=== PATIENT | female | born 1985 | race Two or more races ===

== ENCOUNTER 2016-07-02 09:17 | Inpatient (IN) | payer OTHER ==
[2016-07-02] MEDS ORDERED: SODIUM CHLORIDE 0.9% 1000 ML INFUS.BAG IV ONE ×2 (09:40→14:30)
--- NOTE | 2016-07-02 09:40 | PDOC ---
History of Present Illness <Aakash Tolentino - Last Filed: 07/02/16 19:08> - General History Source: Patient Exam Limitations: No Limitations - History of Present Illness Initial Comments: 07/02/16 09:42 The patient is a 31-year-old woman with a significant past surgical medical history gastric bypass (2010) of who presents to the emergency department via walk-in for evaluation of persistent abdominal pain for the past 4 days. As per patient, she reports diffuse abdominal pain, worse at the right upper/lower lateral abdomen with a 10/10 in severity. Patient recalls lifting a heavy object on . She states that her pain is exacerbated with lateral movements. She does not provide any alleviating factors. Patient also reports also developing nausea, vomiting(non-blood/non-bilious), loose watery stools and lightheadedness over the past 4 days. She reports visiting her father, who resides at a [facility]. She states that her father had gotten over a stomach bug and expresses concern to if she has contracted the same stomach bug. She denies fever, chills, diaphoresis, generalized weakness. She denies chest pain, shortness of breath, cough She denies dysuria, hematuria, urinary frequency and urgency, flank pain, vaginal discharge/vaginal bleeding Allergies: No Known Drug Allergies. Past Surgical History: Caesarian Section x2. Gastric Bypass (2010) Social History: She denies tobacco, ETOH and recreational drug use. <Janel Rodriguez - Last Filed: 07/02/16 19:09> - General Chief Complaint: Pain Stated Complaint: DEHYDRATED, ABD PAIN, DIZZINESS Past History - Past Medical History Other medical history: DENIES - Surgical History Gastric Stapling: No (BYPASS 2010) - Psycho/Social/Smoking Cessation Hx Anxiety: No Suicidal Ideation: No Smoking History: Never smoked Hx Alcohol Use: No Drug/Substance Use Hx: No Substance Use Type: None <Aakash Tolentino - Last Filed: 07/02/16 19:08> <Janel Rodriguez - Last Filed: 07/02/16 19:09> - Past Medical History Allergies/Adverse Reactions: Allergies Allergy/AdvReac Type Severity Reaction Status Date / Time Iv Dye Allergy Intermediate Rash Uncoded 07/02/16 18:46 Home Medications: Ambulatory Orders NK [No Known Home Medication] 07/02/16 Review of Systems - Review of Systems Able to Perform ROS?: Yes Comments:: 07/02/16 09:42 GENERAL/CONSTITUTIONAL: No fever or chills. No weakness. HEAD, EYES, EARS, NOSE AND THROAT: No change in vision. No ear pain or discharge. No sore throat. CARDIOVASCULAR: No chest pain or shortness of breath. RESPIRATORY: No cough, wheezing, or hemoptysis. GASTROINTESTINAL: Yes: +Abdominal pain. +Nausea. +Vomiting. +Diarrhea. No constipation. GENITOURINARY: No dysuria, frequency, or change in urination. MUSCULOSKELETAL: No joint or muscle swelling or pain. No neck or back pain. SKIN: No rash NEUROLOGIC: Yes: +Lightheadedness. No headache, vertigo, loss of consciousness, or change in strength/sensation. ENDOCRINE: Yes: +Weight loss secondary to gastric bypass. No increased thirst. No abnormal weight change. HEMATOLOGIC/LYMPHATIC: No anemia, easy bleeding, or history of blood clots. ALLERGIC/IMMUNOLOGIC: No hives or skin allergy. <Janel Rodriguez - Last Filed: 07/02/16 19:09> *Physical Exam - Vital Signs Last Vital Signs Temp Pulse Resp BP Pulse Ox 98.6 F 123 H 20 115/77 100 07/02/16 09:19 07/02/16 09:19 07/02/16 09:19 07/02/16 09:19 07/02/16 09:19 <Aakash Tolentino - Last Filed: 07/02/16 19:08> - Vital Signs Last Vital Signs Temp Pulse Resp BP Pulse Ox 98.6 F 123 H 20 115/77 100 07/02/16 09:19 07/02/16 09:19 07/02/16 09:19 07/02/16 09:19 07/02/16 09:19 - Physical Exam Comments: 07/02/16 09:42 GENERAL: Awake, alert, and fully oriented, appears dehydrated. HEAD: No signs of trauma EYES: PERRLA, EOMI, sclera anicteric, conjunctiva clear ENT: Auricles normal inspection, hearing grossly normal, nares patent, oropharynx clear without exudates. Dry mucosa NECK: Normal ROM, supple, no lymphadenopathy, JVD, or masses LUNGS: Breath sounds equal, clear to auscultation bilaterally. No wheezes, and no crackles HEART: Regular rate and rhythm, normal S1 and S2, no murmurs, rubs or gallops ABDOMEN: Soft, tenderness over McBurney's point. Normoactive bowel sounds. No guarding, no rebound. No masses EXTREMITIES: Normal range of motion, no edema. No clubbing or cyanosis. No cords, erythema, or tenderness NEUROLOGICAL: Cranial nerves II through XII grossly intact. Normal speech. <Janel Rodriguez - Last Filed: 07/02/16 19:09> ED Treatment Course - LABORATORY CBC & Chemistry Diagram: 07/02/16 09:35 07/02/16 09:40 <Aakash Tolentino - Last Filed: 07/02/16 19:08> - LABORATORY CBC & Chemistry Diagram: 07/02/16 09:35 07/02/16 09:40 - RADIOLOGY Radiograph Interpretation: 07/02/16 14:16 EXAM: RAD/CHEST PA & LAT Reviewed by Dr. Aakash Tolentino Interpreted by Dr. Roly Gaming IMPRESSION: No acute infiltrates. Questionable atelectatic change posterior base. EXAM: CT/ABDOMEN & PELVIS CT WITH CONTRAST Reviewed by Dr. Aakash Tolentino Interpreted by Dr. Milo Murphy IMPRESSION: No evidence of bowel obstruction, appendicitis or acute pathology within the abdomen or pelvic. Evaluation of the lung bases demonstrates trace bilateral pleural effusions and basilar atelectasis. <Janel Rodriguez - Last Filed: 07/02/16 19:09> Medical Decision Making - Medical Decision Making 07/02/16 16:06 A call was sent to Circulation Assistant construction helper, Dr. Silvino Thomas at [phone]. 07/02/16 16:44 Response from Circulation Assistant, Dr. Tru Becker. Case was discussed. Accepts case. 07/02/16 16:59 A call was sent to Oncology/Food Service Technician, at [phone]. 07/02/16 18:04 A page was sent to ID Specialist, Dr. Stan Joyce at . Response by Dr. Susan Fulton. Case was discussed. Accepts case. 07/02/16 18:47 MicroBlogged Hospitalist. <Janel Rodriguez - Last Filed: 07/02/16 19:09> *DC/Admit/Observation/Transfer - Discharge Dispostion Admit: Yes <Aakash Tolentino - Last Filed: 07/02/16 19:08> - Discharge Dispostion Admit: Yes - Attestations Scribe Attestion: 07/02/16 09:42 Documentation prepared by Janel Rodriguez, acting as back office medical assistant for Aakash Tolentino MD. <Janel Rodriguez - Last Filed: 07/02/16 19:09> Diagnosis at time of Disposition: Abdominal pain, Neutropenia, Thrombocytopenia - Discharge Dispostion Condition at time of disposition: Guarded - Referrals Referrals: STAFF,NOT ON [Primary Care Provider] -
[2016-07-02] MEDS ORDERED: ONDANSETRON 4 MG/2 ML VIAL IVPUSH ONE (09:41)
[2016-07-02] MEDS ORDERED: ONDANSETRON 4 MG/2 ML VIAL ONE (09:54)
[2016-07-02 10:28] LABS: BASOPHIL 0.4 % (0-2.0); MCH 21.1 pg (25.7-33.7); MCHC 31.4 g/dl (32.0-36.0); MEAN CELL VOLUME 67.3 fl (80-96); MEAN PLT VOLUME 8.8 fl (7.5-11.1); NEUTROPHILS 81.4 % (42.8-82.8); PLATELET COUNT 106 K/MM3 (134-434); RDW 16.5 % (11.6-15.6); WHITE BLOOD COUNT 2.1 K/mm3 (4.0-10.0)
[2016-07-02 11:28] LABS: ALBUMIN 3.3 g/dl (3.4-5.0); ALK PHOS 224 U/L (45-117); ANION GAP 8 (8-16); BILIRUBIN,TOTAL 0.9 mg/dL (0.2-1.0); CALCIUM 8.4 mg/dL (8.5-10.1); CO2 24 mmol/L (21-32); CREATININE 0.7 mg/dL (0.55-1.02); GLUCOSE,RANDOM 103 mg/dL (74-106); SGOT/AST 127 U/L (15-37); SGPT/ALT 105 U/L (12-78)
[2016-07-02] MEDS ORDERED: HYDROmorphone HCL CARPU-JECT 1 MG/1 ML DISP.SYRIN IVPUSH ONE (11:38)
[2016-07-02] MEDS ORDERED: HYDROmorphone HCL CARPU-JECT 1 MG/1 ML DISP.SYRIN ONE (11:43)
[2016-07-02 12:59] LABS: ANISOCYTOSIS 1+; HYPOCHROMIA 2+; MICROCYTOSIS 1+; POIKILOCYTOSIS 2+
[2016-07-02 13:00] LABS: OVALOCYTES 2+
[2016-07-02] MEDS ORDERED: ACETAMINOPHEN 325 MG TABLET (FP) PO ONE (16:46)
[2016-07-02] MEDS ORDERED: ACETAMINOPHEN 325 MG TABLET (FP) ONE (16:47)
[2016-07-02] MEDS ORDERED: VANCOMYCIN 1,000 MG in DEXTROSE 5%-WATER - 250 ML IVPB ONE (17:18)
[2016-07-02] MEDS ORDERED: PIPERACILLIN/TAZOB 4.5 GM 4.5 GM in DEXTROSE 5%-WATER - 100 ML IVPB ONE (17:18)
[2016-07-02] MEDS ORDERED: FAMOTIDINE 20 MG/50 ML IVPB 50 ML IVPB ONE ×2 (17:52→18:50)
[2016-07-02] MEDS ORDERED: DEXAMETHASONE SOD PHOSPHATE 10 MG/1 ML VIAL IVPUSH ONE (17:52)
[2016-07-02] MEDS ORDERED: VANCOMYCIN 1 GRAM (PRE-DOCKED) 250 ML IVPB ONE (17:59)
[2016-07-02] MEDS ORDERED: PIPERACILLIN/TAZOB 4.5 GM 100 ML IVPB ONE (17:59)
--- NOTE | 2016-07-02 18:13 | CONSULT ---
Consult Consult Specialty:: GI Referred by:: Hospitalist Reason for Consultation:: Abdominal pain - History of Present Illness Chief Complaint: "I had a dry mouth and had pain" (points towards pelvis and lower abdomen) History of Present Illness: 31F admitted through [facility] ER for evaluation of abdominopelvic pain. She also describes more watery bowel movements (looser than her usual soft BM's) over the last couple of days as well. The pain seems to be positional in nature and she alludes to experiencing the pain after lifting a heavy object and carrying it up stairs for her daughter. There was no associated vomiting but she says that her appetite has been diminished over the last couple of days. She denies rectal bleeding or melena. Her father, who resides in a snf apparently has been having diarrhea as well as many of the other reidents and she recently visited him. She denies antibiotic use/travel. Work-up in the ER included an unrevealing contrast CT of the abdomen/pelvis. She had blood work revealing leukopenia, anemia and thrombocytopenia. Transaminases were elevated as well as alkaline phosphatase. She also seemed to develop a rash while in the ER (she states that this was before undergoing injection of IV dye for her CT scan) and had a temp spike of 102.7 as well. she was given dilaudid and fentanyl for her pain. She took Dayquil x 1 for her symptoms. She has no PMD and self admittedly has poor medical follow-up. She does not recall ever having an upper endoscopy (despite having a gastric bypass in 2010) or colonoscopy. - History Source History Provided By: Patient Limitations to Obtaining History: No Limitations - Past Medical History ...LMP: 06/25/16 ...: No Additional Medical History: Obesity - Past Surgical History Past Surgical History: Yes: Bariatric Surgery (gastric bypass (? 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 [employer] History of Recent Travel: No Home Medications - Allergies Allergies/Adverse Reactions: Allergies Allergy/AdvReac Type Severity Reaction Status Date / Time Iv Dye Allergy Intermediate Rash Uncoded 07/02/16 18:46 - Home Medications Home Medications: Ambulatory Orders NK [No Known Home Medication] 07/02/16 Family Disease History - Family Disease History Family Disease History: Other: Father (65: mental illness), Mother (58: healthy) , Brother (healthy), Daughter (healthy) Other Family History: No family history of colorectal cancer, liver disease Review of Systems - Review of Systems Constitutional: reports: Chills Cardiovascular: denies: Chest Pain, Shortness of Breath Respiratory: denies: Cough, SOB Gastrointestinal: reports: Abdominal Pain, Diarrhea. denies: Constipation Genitourinary: denies: Burning, Dysuria Musculoskeletal: reports: Joint Pain (hands and knees) Integumentary: reports: Rash (noted in ER prior to CT scan injection) Physical Exam-GI Vital Signs: Vital Signs Temperature 99.2 F 07/02/16 17:19 Pulse Rate 106 H 07/02/16 17:19 Respiratory Rate 19 07/02/16 17:19 Blood Pressure 114/55 07/02/16 17:19 O2 Sat by Pulse Oximetry (%) 99 07/02/16 17:19 Constitutional: Yes: Calm Eyes: No: Sclera Icterus Cardiovascular: Yes: Tachycardia. No: Murmur Respiratory: Yes: CTA Bilaterally Gastrointestinal Inspection: Yes: Scars (healed trochar scars, horizontal pelvic surgical scar with erythematous erosion along the scar). No: Distention ...Auscultate: Yes: Normoactive Bowel Sounds ...Palpate: Yes: Soft, Tenderness (mild TTP lower abdomen and pelvis) ...Percussion: No: Tympanitic ...Rectal Exam: Yes: Guaiac Negative Edema: No Neurological: Yes: Alert, Oriented Labs: CBC, BMP 07/02/16 09:35 07/02/16 09:40 Imaging - Results Cat Scan: Report Reviewed, Image Reviewed Problem List - Problems (1) Lower abdominal pain Assessment/Plan: Abdominopelvic pain: with associated looser bowel movements, ? if secondary to an infectious process. ? viral prodrome given her blood dyscrasias. Her anemia likely reflects acute process with component of chronicity (likely lack of iron supplementation in setting of gastric bypass anatomy Advise: Pelvic US Clear liquids If worsening abdominal pain, surgical evaluation Code(s): R10.30 - LOWER ABDOMINAL PAIN, UNSPECIFIED (2) Abnormal liver enzymes Assessment/Plan: Do not know her baseline however she denies history of liver disease No RUQ pain ? if reactive to systemic process: Advise: Hepatitis A/B/C serologies Abdominal US Monitor LFTs Check coags Celiac serologies If worsening cholestatic pattern, MRCP Code(s): R74.8 - ABNORMAL LEVELS OF OTHER SERUM ENZYMES (3) Pancytopenia Assessment/Plan: ? if secondary to systemic illness / viral pathology Advise: ID eval Heme eval Code(s): D61.818 - OTHER PANCYTOPENIA (4) Rash Assessment/Plan: Blanching Unclear if secondary to something given in ER (dilaudid) as it seems to have occurred prior to CT scan or if secondary to systemic process Code(s): R21 - RASH AND OTHER NONSPECIFIC SKIN ERUPTION
[2016-07-02] MEDS ORDERED: DEXAMETHASONE SOD PHOSPHATE 10 MG/1 ML VIAL ONE (18:50)
[2016-07-02 19:40] LABS: FERRITIN 71.223 ng/ml (6.9-282.5)
--- NOTE | 2016-07-02 21:45 | HP ---
CHIEF COMPLAINT: " My stomach hurts" PCP: unknown HISTORY OF PRESENT ILLNESS: This is a 31 yo F with a PMH of childhood anemia and gastric bypass in 2010, who presents due to abdominal pain x 3 days. She states that 3 days ago she began feeling weak, with f/c and diaphoresis, and developed diffuse abdominal pain after lifting some heavy objects. 2 days ago, she developed diarrhea (1 loose brown Bm /day), abd cramps, loss of appetite and nausea, with no vomiting. She recently visited her father at a care home where he and several other residents have been having diarrhea. She denies melena or hematochezia, mucus in stool or green stool. She states that her nausea is normal for her since her bypass. She denies chest pain, h/a, sob or dysuria. In ed After contrast infusion for CT scan, she spiked a fever for 102.7 (afebrile on presentation) and developed a nonitichy, painless macular rash over her arms and legs. She was given benadryl and decadron with relief in rash and fever. ER course was notable for: (1)IVF, neena, vanco/zosyn (2)labs (3)CXR, Abd/pelv CT, abd US, Bladder US Recent Travel: denies PAST MEDICAL HISTORY: as above PAST SURGICAL HISTORY: gastric bypass , c section 2008, abdominoplasty 2014 Social History: lives with daughter Smoking: denies Alcohol: denies Drugs: denies Family History: Allergies Iv Dye Allergy (Intermediate, Uncoded 07/02/16 18:46) Rash HOME MEDICATIONS: Medication Instructions Recorded NK [No Known Home Medication] 07/02/16 REVIEW OF SYSTEMS CONSTITUTIONAL: Absent: weight change HEENT: Absent: difficulty swallowing, visual changes CARDIOVASCULAR: Absent: chest pain, syncope, palpitations, peripheral edema RESPIRATORY: Absent: cough, shortness of breath, dyspnea with exertion GASTROINTESTINAL: Absent: abdominal distension, constipation, melena, hematochezia GENITOURINARY: Absent: dysuria, genital pain MUSCULOSKELETAL: Absent: myalgia, arthralgia SKIN: Absent: itching, pallor HEMATOLOGIC/IMMUNOLOGIC: Absent: easy bleeding, easy bruising, frequent infections ENDOCRINE: Absent: heat intolerance, cold intolerance NEUROLOGIC: Absent: headache, focal weakness or paresthesias PSYCHIATRIC: Absent: anxiety, depression Selected Entries 07/02/16 07/02/16 07/02/16 09:19 13:19 16:40 Temperature 98.6 F 102.7 F H Pulse Rate 123 H Pulse Rate [ 97 H Apical] Respiratory 19 Rate Blood Pressure 103/59 [Left Arm] O2 Sat by Pulse Oximetry (%) 07/02/16 07/02/16 17:19 22:15 Temperature 99.2 F 98.5 F Pulse Rate Pulse Rate [ 106 H Apical] Respiratory 19 18 Rate Blood Pressure 114/55 105/66 [Left Arm] O2 Sat by Pulse 97 Oximetry (%) Laboratory Tests 07/02/16 07/02/16 07/02/16 09:35 09:40 09:40 WBC 2.1 L Hgb 9.7 L Hct 30.8 L Plt Count 106 L Sodium 136 Potassium 3.4 L Chloride 104 Carbon Dioxide 24 Anion Gap 8 BUN 9 Creatinine 0.7 Creat Clearance w eGFR > 60 Random Glucose 103 AST 127 H ALT 105 H Alkaline Phosphatase 224 H LD Total Total Protein 7.0 Albumin 3.3 L Lipase 87 Serum , Qual Negative 07/02/16 18:40 WBC Hgb Hct Plt Count Sodium Potassium Chloride Carbon Dioxide Anion Gap BUN Creatinine Creat Clearance w eGFR Random Glucose AST ALT Alkaline Phosphatase LD Total 294 H Total Protein Albumin Lipase Serum , Qual PHYSICAL EXAMINATION GENERAL: Awake, alert, and fully oriented, in no acute distress. HEAD: Normal with no signs of trauma. EYES: PERRLA, EOMI sclera anicteric, conjunctiva clear. EARS, NOSE, THROAT: Moist mucous membranes. NECK: supple without JVD LUNGS: Breath sounds equal, clear to auscultation bilaterally. HEART: Regular rate and rhythm, normal S1 and S2 ABDOMEN: Soft, mildly tender LLW RLQ, not distended, normoactive bowel sounds, no guarding, mild splenomegaly. Refuses rectal exam MUSCULOSKELETAL: No CVA tenderness. UPPER EXTREMITIES: 2+ pulses, warm, well-perfused. No peripheral edema. LOWER EXTREMITIES: 2+ pulses, warm, well-perfused. No calf tenderness. No peripheral edema. NEUROLOGICAL: Cranial nerves II-XII grossly intact. Normal speech. PSYCHIATRIC: Cooperative. Good eye contact. Appropriate mood and affect. SKIN: Warm, dry ASSESSMENT/PLAN: This is a 31 yo F with a PMH of childhood anemia and gastric bypass in 2010, who presents due to abdominal pain x 3 days. She states that 3 days ago she began feeling weak, with f/c and diaphoresis, and developed diffuse abdominal pain after lifting some heavy objects. 2 days ago, she developed diarrhea (1 loose brown Bm /day), abd cramps, loss of appetite and nausea, with no vomiting. She recently visited her father at a care home where he and several other residents have been having diarrhea. She denies melena or hematochezia, mucus in stool or green stool. She states that her nausea is normal for her since her bypass. She denies chest pain, h/a, sob or dysuria. In ed After contrast infusion for CT scan, she spiked a fever for 102.7 (afebrile on presentation) and developed a nonitichy, painless macular rash over her arms and legs. She was given benadryl and decadron with relief in rash and fever. ER course was notable for: (1)IVF, neena, vanco/zosyn (2)labs (3)CXR, Abd/pelv CT, abd US, Bladder US Acute gastroenteritis -viral vs bacterial -s/p vanco, zosyn -ID consult -IVF NS @ 100 -clears -celiac serology -Gi consult appreciated Pancytopenia *Anemia: chronic component with exacerbation likley due to Fe deficiency ( noncompliant with Fe supplenemts in setting of Gastric bypass) -stool guaiac negative -f/u fe studies *Leukopenia/ttp -splenomegaly, transaminitis -heme consult -chronic vs infectious vs oncologic -f/u hepatitis panel, HIV -possible fatty liver -f/u blood and urine cultures -possible bone marrow biopsy Rash -occurred soon after IV contrast administration -macular, painless, no pruritus -associated with fever spike 102.7 -s/p decadron and Benadryl -resolving FEN NS@100 lytes replete hypokalemia DVT GI PPX: scd, diet celars Dispo: admit to med surge Problem List - Problem (1) Abdominal pain Code(s): R10.9 - UNSPECIFIED ABDOMINAL PAIN (2) Abnormal liver enzymes Code(s): R74.8 - ABNORMAL LEVELS OF OTHER SERUM ENZYMES (3) Lower abdominal pain Code(s): R10.30 - LOWER ABDOMINAL PAIN, UNSPECIFIED (4) Pancytopenia Code(s): D61.818 - OTHER PANCYTOPENIA (5) Rash Code(s): R21 - RASH AND OTHER NONSPECIFIC SKIN ERUPTION (6) Thrombocytopenia Code(s): D69.6 - THROMBOCYTOPENIA, UNSPECIFIED Visit type - Emergency Visit Emergency Visit: Yes ED Registration Date: 07/02/16 Care time: The patient presented to the Emergency Department on the above date and was hospitalized for further evaluation of their emergent condition. - New Patient This patient is new to me today: Yes Date on this admission: 07/03/16 - Critical Care Critical Care patient: No
--- NOTE | 2016-07-02 22:23 | CONSULT ---
Consult Consult Specialty:: Hematology-Oncology Referred by:: ER physician Reason for Consultation:: pancytopenia - History of Present Illness Chief Complaint: fatigue, vague,diffuse abdo. discomfort, loose stool X several days History of Present Illness: 31 y/o F w hx gastric bypass, chronic mild loose stool, hx " low white blood count" in past, hx iron def. anemia on iron in past, nl menses , developed fatigue recently, stress at home, did heavy lifting ,developed diffuse abdo pains, mostly in lower quadrants , decreased PO intake, looser stools than usual ; no fever but had occ chills. She went to ER and had CT a/p w contrast , had mild allergic reaction w rash and fever 102. CBC showed WBC 2.1 w unremarkable diff. H/H 9.7/30.8 MCV 67 ,plates 106K Retic 0.9. CT a/p unrevealing ,trace B/L pleural effusions ., US abd. w mild splenomegaly 14.7X 11X 6cm , mild dilatation main portal vein, liver nl;CMP shows ALK 224 [id number] AST 127, Ferritin 71; CXR neg ? 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: No: Alzheimer's, CVA, Dementia, Migraine, Multiple Sclerosis, Peripheral Neuropathy, Parkinson's, Seizure, Syncope, TIA, Vertigo, Other Cardio/Vascular: No: AFIB, Aneurysm, Aortic Insufficiency, Aortic Stenosis, CAD , CHF, Deep Vein Thrombosis, HTN, Hyperlipdemia, NE, Mitral Insufficiency, Mitral Stenosis, Murmur, Pulmonary Hypertension, Other Pulmonary: No: Asthma, Bronchitis, Cancer, COPD, O2 Dependent, Pneumonia, Previously Intubated, Pulmonary Embolus, Pulmonary Fibrosis, Sleep Apnea, Other Gastrointestinal: No: Ascites, Cancer, Constipation, Crohn's Disease, Diverticulitis, Diverticulosis, Esophageal Varices, Gastritis, GERD, GI Bleed, Hemorrhoids, Hiatal Hernia, Inflamatory Bowel Disease, Irritable Bowel Disease, Pancreatitis, Peptic Ulcer Disease, Ulcerative Colitis, Other Hepatobiliary: No: Cirrhosis, Cholelithiasis, Cholecystitis, Choledocholithiasis , Hepatitis A, Hepatitis B, Hepatitis C, Other Reproductive: No: Ectopic , Endometriosis, Fibroids, PID, Polycystic Ovary Syndrome, Postmenopausal, Other ...LMP: 06/25/16 ...: No Heme/Onc: Yes: Anemia, Other (hx low WBC in past yrs) Endocrine: No: Hampton's Disease, Rodney's Disease, Diabetes Insipidus, Diabetes Mellitus, Hyperparathyroidism, Hyperthyroidism, Hypothyroidism, Osteopenia, SIADH, Other Dermatology: No: Basal Cell, Cellulitis, Eczema, Melanoma, Psoriasis, Squamous Cell, Other Additional Medical History: Obesity - Past Surgical History Past Surgical History: Yes: Bariatric Surgery (gastric bypass (? 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 [employer] History of Recent Travel: No Home Medications - Allergies Allergies/Adverse Reactions: Allergies Allergy/AdvReac Type Severity Reaction Status Date / Time Iv Dye Allergy Intermediate Rash Uncoded 07/02/16 18:46 - Home Medications Home Medications: Ambulatory Orders NK [No Known Home Medication] 07/02/16 Family Disease History - Family Disease History Family Disease History: Other: Father (65: mental illness), Mother (58: healthy) , Brother (healthy), Daughter (healthy) Other Family History: No family history of colorectal cancer, liver disease Review of Systems - Review of Systems Constitutional: reports: Chills, Fever, Weakness Eyes: denies: No Symptoms, Blind Spots, Blurred Vision, Double Vision, Eye Pain , Floaters, Photophobia, Recent Change in Vision, Other HENT: denies: No Symptoms, Difficult Swallowing, Ear Discharge, Ear Pain, Epistaxis, Gingival Bleeding, Hearing Loss, Mouth Swelling, Nasal Congestion, Ocular Prosthesis, Throat Pain, Toothache, Ringing in Ears, Other Neck: denies: No Symptoms, Decreased ROM, Lumps, Pain on Movement, Stiffness, Swollen Glands, Tenderness, Other Cardiovascular: denies: No Symptoms, Chest Pain, Edema, Palpitations, Shortness of Breath, Other Respiratory: denies: No Symptoms, Cough, Exercise Intolerance, Hemoptysis, Orthopnea, PND, Snoring, SOB, SOB on Exertion, Wheezing, Other Gastrointestinal: reports: Abdominal Pain, Diarrhea. denies: No Symptoms, Bloating, Constipation, Dysphagia, Indigestion, Melena, Nausea, Rectal Bleeding , Vomiting, Vomiting Blood, Other Genitourinary: reports: No Symptoms Breasts: reports: No Symptoms Reported Musculoskeletal: reports: No Symptoms Integumentary: denies: No Symptoms, Blister, Bruising, Change in Color, Eczema, Erythema, Incision, Lesions, Lump, Pallor, Pruritis, Rash, Wound, Other Neurological: denies: No Symptoms, Change in LOC, Change in Speech, Confusion, Dizziness, Headache, Incoordination, Numbness, Parasthesia, Pre-Existing Deficit , Seizure, Syncope, Tremors, Unsteady Gait, Weakness, Other Endocrine: denies: No Symptoms, Excessive Sweating, Flushing, Increased Hunger, Increased Thirst, Intolerance to Cold, Intolerance to Heat, Unexplained Weight Gain, Unexplained Weight Loss, Other Hematology/Lymphatic: reports: Easily Bruised (mild) Psychiatric: reports: No Symptoms Physical Exam Vital Signs: Vital Signs Temperature 99.2 F 07/02/16 17:19 Pulse Rate 106 H 07/02/16 17:19 Respiratory Rate 19 07/02/16 17:19 Blood Pressure 114/55 07/02/16 17:19 O2 Sat by Pulse Oximetry (%) 99 07/02/16 17:19 Constitutional: Yes: Well Nourished, No Distress, Calm Eyes: Yes: WNL, Conjunctiva Clear, EOM Intact HENT: No: WNL, Atraumatic, Normocephalic, Drooling, Epistaxis, Hoarseness, Nasal Congestion, Pharyngeal Erythema, Rhinnorhea, Thrush, Tonsillar Exudate, Other Neck: Yes: WNL, Supple, Trachea Midline Cardiovascular: Yes: WNL, Regular Rate and Rhythm Respiratory: Yes: WNL, Regular, CTA Bilaterally Gastrointestinal: Yes: WNL, Normal Bowel Sounds, Soft, Abdomen, Obese, Tenderness (mild lower abd tenderness). No: Ascites, Distention, Hematemesis, Hemorrhoids, Hepatomegaly, Hernia, Hyperactive Bowel Sounds, Hypoactive Bowel Sounds, Melena, Palpable Mass, Pulsatile Mass, Rectal Bleeding, Splenomegaly, Tenderness, Epigastrium, Tenderness, Rebound, Vomiting, Other Musculoskeletal: Yes: WNL Extremities: Yes: WNL Edema: No Integumentary: Yes: WNL Assessment/Plan Pt w mild pancytopenia , etiology uncertain , but there is a hypoproliferative hypochromic microcytic anemia most compatible w iron def ., however this would not explain the other low counnts ,the thrombocytopenia is mild ; she has ANC 1700 ,lymphopenia (reportedly an HIV test was recently neg) ; ALK + transaminases modestly elevated , but bili nl , LDH 294. There is mild splenomegaly( ? hypersplenism) by US but not palpable.The differential is quite broad to explain the blood abnormalities. There may be an element of bone marrow suppression , or immune etiology, or WBC may be explained by hx of benign neutropenia ; there is no overt evidence of a hematological malignancy. I would watch blood counts over next few days , check B12/folate ,iron studies, haptoglobin.If counts remain low by Thursday , a bone marrow exam could be useful to rule out primary bone marrow diseases. Please check PT/PTT , Fibrinogen, and order Hemoglobin electropheresis. Continue w/u of LFT's by GI and empiric ab's. Do not have to start iron supplementation yet.
[2016-07-02] MEDS ORDERED: POTASSIUM CHLORIDE TABS 20 MEQ TABLET.ER (FP) PO ONE (22:32)
--- NOTE | 2016-07-02 23:33 | PN ---
<Olivia Floyd - Last Filed: 07/03/16 00:53> Teaching Attending Note ATTENDING PHYSICIAN STATEMENT I saw and evaluated the patient. I reviewed the resident's note and discussed the case with the resident. I agree with the resident's findings and plan as documented. SUBJECTIVE: The patient is a 31 yo F with a PMhx of childhood anemia and PSHx of gastric bypass 2011 who presents with abdominal pain for the past 3 days. She states 2 days ago, she was lifting heavy objects and felt a sharp, "shooting" pain in her lower abdomen. She reports fever/chills however denies any vomitting. She endorses nausea, diarrhea (nonbloody/nonmucoid) for the past 2 days. She recently visited her father at a snf where he and several other residents have been having diarrhea. She denies chest pain, headache and dizziness. She denies dysuria, frequency, urgency and hematuria. She denies weightloss and fevers prior to two days ago. She has not been taking her gastric bypass supplements for months. She was told she has had low WBC in the past. OBJECTIVE: Physical Last Vital Signs Temp Pulse Resp BP Pulse Ox 98.5 F 88 18 105/66 97 07/02/16 22:15 07/02/16 22:15 07/02/16 22:15 07/02/16 22:15 07/02/16 22:15 GENERAL: Awake, alert, and fully oriented, in no acute distress HEENT: Atraumatic. PERRLA, EOMI. Moist mucosa. No JVD + Anterior cervical adenopathy and R inguinal adenopathy. LUNGS: No distress, speaks full sentences, clear to auscultation bilaterally HEART: Regular rate and rhythm, normal S1 and S2, no murmurs, rubs or gallops, peripheral pulses normal and equal bilaterally. ABDOMEN: +Mild abdominal tenderness. Soft, normoactive bowel sounds. No guarding, no rebound. No masses EXTREMITIES: Normal inspection, Normal range of motion, no edema. No clubbing or cyanosis. NEUROLOGICAL: Cranial nerves II through XII grossly intact. Normal speech, normal gait, no focal sensorimotor deficits SKIN: Warm, Dry, normal turgor, no lesions noted. +Rash to bilateral arms and legs, patchy and faintly erythematous rash. CBCD WBC 2.1 K/mm3 (4.0-10.0) L 07/02/16 09:35 RBC 4.57 M/mm3 (3.60-5.2) 07/02/16 09:35 Hgb 9.7 GM/dL (10.7-15.3) L 07/02/16 09:35 Hct 30.8 % (32.4-45.2) L 07/02/16 09:35 MCV 67.3 fl (80-96) L 07/02/16 09:35 MCHC 31.4 g/dl (32.0-36.0) L 07/02/16 09:35 RDW 16.5 % (11.6-15.6) H 07/02/16 09:35 Plt Count 106 K/MM3 (134-434) L 07/02/16 09:35 MPV 8.8 fl (7.5-11.1) 07/02/16 09:35 CMP Sodium 136 mmol/L (136-145) 07/02/16 09:40 Potassium 3.4 mmol/L (3.5-5.1) L 07/02/16 09:40 Chloride 104 mmol/L (98-107) 07/02/16 09:40 Carbon Dioxide 24 mmol/L (21-32) 07/02/16 09:40 Anion Gap 8 (8-16) 07/02/16 09:40 BUN 9 mg/dL (7-18) 07/02/16 09:40 Creatinine 0.7 mg/dL (0.55-1.02) 07/02/16 09:40 Creat Clearance w eGFR > 60 (>60) 07/02/16 09:40 Calcium 8.4 mg/dL (8.5-10.1) L 07/02/16 09:40 Total Bilirubin 0.9 mg/dL (0.2-1.0) 07/02/16 09:40 AST 127 U/L (15-37) H 07/02/16 09:40 ALT 105 U/L (12-78) H 07/02/16 09:40 Alkaline Phosphatase 224 U/L (45-117) H 07/02/16 09:40 Total Protein 7.0 g/dl (6.4-8.2) 07/02/16 09:40 Albumin 3.3 g/dl (3.4-5.0) L 07/02/16 09:40 IMAGING: Chest Xray Impression: No acute infiltrate. Questionable atelectatic change posterior base. Abdomen/Pelvis CT w Contrast Impression: No evidence of bowel obstruction, appendicitis or acute pathology within the abdomen or pelvis. Abdomen US Impression: Splenomegaly. Apparent mild dilatation of the main portal vein suggestive of possible increased portal pressure. The liver demonstrates no definite sonographic pathology. No evidence of cholelithiasis. There is no biliary tract dilatation. Pelvic/Bladder US - Awaiting Official Report ASSESSMENT AND PLAN: The patient is a 31 yo F with a PMhx of childhood anemia and PSHx of gastric bypass 2010, off of her supplements who presents with abdominal pain and diarrhea. She was found to be pancytopenia with dysmorphic RBS. Gastrointestinal symptoms with exposure to sick contact is likely viral gastroenteritis. Will treat symptomatically with IVF, anti-diarrheas as necessary. Pancytopenia in the setting of not taking gastric bypass supplements likely has contribution from severe nutrient deficiency. She also may have low baseline but concerning etiology will be hematologic malignancy. Will obtain vitamin levels and supplements aggressively. Will follow blood counts. Patient may require bone marrow biopsy, timing of which is to be determined by Hematology/Oncology. Documentation prepared by Olivia Floyd, acting as medical photographer for Yahir Bocanegra MD <Yahir Bocanegra - Last Filed: 07/07/16 05:25> Teaching Attending Note Name of Resident: [place] ATTENDING PHYSICIAN STATEMENT I saw and evaluated the patient. I reviewed the resident's note and discussed the case with the resident. I agree with the resident's findings and plan as documented. SUBJECTIVE: OBJECTIVE: ASSESSMENT AND PLAN:
[2016-07-02] MEDS: SODIUM CHLORIDE 1,000 ML IV SCH (23:35)
[2016-07-03] MEDS: ACETAMINOPHEN 500 MG TABLET (FP) PO PRN ×4 (01:01→20:12)
[2016-07-03] MEDS ORDERED: PIPERACILLIN/TAZOB 3.375 GM 50 ML IVPB ONE ×2 (02:00→10:00)
[2016-07-03 08:01] LABS: ACTIVATED PTT 33.2 SECONDS (26.9-34.4)
[2016-07-03 08:18] LABS: ALBUMIN 2.6 g/dl (3.4-5.0); ANION GAP 7 (8-16); CALCIUM 7.8 mg/dL (8.5-10.1); CO2 24 mmol/L (21-32); CREATININE 0.6 mg/dL (0.55-1.02); GLUCOSE,RANDOM 112 mg/dL (74-106); MAGNESIUM 1.8 mg/dL (1.8-2.4); PHOSPHOROUS 2.2 mg/dL (2.5-4.9); SGOT/AST 112 U/L (15-37); SGPT/ALT 95 U/L (12-78); TOT PROT 5.9 g/dl (6.4-8.2)
[2016-07-03 08:20] LABS: ALK PHOS 210 U/L (45-117); BILIRUBIN,TOTAL 0.7 mg/dL (0.2-1.0)
[2016-07-03 08:34] LABS: HIV 1 & 2 AB NEGATIVE; HIV 1 AGp24 NEGATIVE
[2016-07-03 10:09] LABS: MCH 20.8 pg (25.7-33.7); MCHC 31.1 g/dl (32.0-36.0); MEAN CELL VOLUME 66.7 fl (80-96); MEAN PLT VOLUME 9.5 fl (7.5-11.1); PLATELET COUNT 89 K/MM3 (134-434); RDW 16.7 % (11.6-15.6)
[2016-07-03 10:11] LABS: INR 1.53 (0.82-1.09)
[2016-07-03] MEDS: CYANOCOBALAMIN (VITAMIN B-12) 100 MCG TABLET PO SCH (10:24)
[2016-07-03] MEDS: FERROUS SO4 325 MG TABLET (FP) PO SCH ×2 (10:25→21:48)
[2016-07-03 10:32] LABS: WHITE BLOOD COUNT 1.6 K/mm3 (4.0-10.0)
--- NOTE | 2016-07-03 12:03 | PN ---
Progress Note (short form) - Note Progress Note: ID Consult dictated Acute gastroenteritis Pancytopenia Probable drug rash await c/s empiric levaquin
[2016-07-03] MEDS: LEVOFLOXACIN 500 MG IVPB 100 ML IVPB SCH (12:12)
--- NOTE | 2016-07-03 14:07 | CONS ---
DATE OF CONSULTATION: 07/03/2016 The patient is a 31-year-old previously healthy female evaluated for fever. She reports developing abdominal pain approximately 4 days prior to admission. She states that symptoms occurred after she had lifted a heavy object. She subsequently reported nausea, vomiting, and nonbloody diarrhea for the past 2 days. The patient states she had visited her father in a [facility] facility who had an acute gastroenteritis. In addition, she had taken amoxicillin 2 weeks ago for a dental procedure. She denies any recent travel. No reports of high-grade fever or shaking chills at home, rectal bleeding. Of note, patient reports having a history of a low white blood cell count in the past, the etiology of which is not clear. Her hospital course has been complicated by fever to 102.7 and pancytopenia. PAST MEDICAL HISTORY: Positive for morbid obesity, history of leukopenia of unclear etiology. PAST SURGICAL HISTORY: Status post gastric bypass and cesarian section. ALLERGIES: No known drug allergies. REVIEW OF SYSTEMS: Neurologic: No loss of consciousness, seizure activity, focal weakness. Cardiac: Negative chest pain or palpitations. Respiratory: Negative cough or sputum production. Gastrointestinal: As per HPI. Genitourinary: Negative for urinary tract infection. LABORATORY DATA: White count on admission 2.1, 81 neutrophils, 13 lymphocytes, 5 monocytes. Hematocrit 25.4. Platelet count 89. Creatinine 0.6, total bilirubin 0.7, alkaline phosphatase 210, AST 112. Chest x-ray negative for acute infiltrate. CAT scan of the abdomen and pelvis shows mildly enlarged spleen. PHYSICAL EXAMINATION: General: She is awake and responsive. She is in no acute distress. Vital Signs: Temperature 98.4, T-max 102.7, blood pressure 102/59, pulse 76, regular. Respirations 16 per minute. HEENT: Sclerae are anicteric. Oropharynx negative. Cardiovascular: Heart sounds S1, S2. Lungs: Clear. Abdomen: Soft. No tenderness elicited. No palpable liver or spleen. No palpable masses. No rebound or rigidity. Extremities: Negative for edema. Urticarial lesions noted on the upper extremities bilaterally, chest, and abdomen. IMPRESSION: 1. Acute gastroenteritis. 2. Pancytopenia. 3. Probable drug rash. Clinical presentation consistent with acute gastroenteritis. Etiology of pancytopenia unclear, may represent viral infection superimposed on chronic leukopenia and anemia. Rash suggestive of hypersensitivity reaction. The patient has received vancomycin, Zosyn, and Dilaudid. She states the rash was present prior to the administration of IV contrast dye for the CAT scan of the abdomen. Await blood culture results, obtain stool culture, ova and parasites, Clostridium difficile, stool for rotavirus and norovirus. Empiric antibiotic coverage with Levaquin 500 mg IV piggyback daily. Gastroenterology and Hematology followups. Thank you for the kind referral. MARISELA CASTANON M.D. [facility]ER/[id number]
--- NOTE | 2016-07-03 15:33 | MSN ---
Admitting History and Physical - Admission Chief Complaint: Abdominal pain, diarrhea History of Present Illness: 31yo F with a PMHx of gastric bypass (likely a wilbert-en-y, in 2010) and childhood anemia (unknown type) presented to the ED with diffuse abdominal pain 4 days ago accompanied with diarrhea (nonblood, nonmucoid) with began 3 days ago. Pt states her father, who lives in a intermediate and with whom she had recent contact with, also has similar symptoms due to a "stomach virus." ED course is notable for IVF, Zofran, Vanco/Zosyn, and imaging. The pt developed a maculopapular rash over her entire body and spiked a fever of 102.7F after receiving contrast for CT while in the ED; she was given benadryl and decadron with relief. Pt was admitted to the 6th floor, seen and examined bedside this morning. Pt was afebrile as of this morning. Pt states that her abdominal pain has subsided and is no longer present, but still has loose stools as of this morning (4-5 loose stools this morning). Pt also complains of a dull frontal headache which began last night while in the ED, that the patient attributes to noise from disruptive pts at night and loud machines. Pt had requested a PRN Tylenol without relief and requested to have another. Pt is also complaining of swelling in her arms and legs, and slight joint pain in her hands and feet which began sometime yesterday following her possible allergic reaction to the contrast. Pt states she had never received contrast before in the past, but states that she had similar hives in the past during the of her child; a prior doctor told her that the hives occurred due to "a chemical imbalance in her body" that would occur often after stress. Pt denies having any chest pain, sob, vomiting, dysuria, fever, or chills. Pt admits to not being compliant with her vitamins following her bypass surgery and "not having the best diet." When asked about her low blood count, pt stated that she was diagnosed with anemia at a young age and has always been susceptible to the flu and illnesses as a result. Pt denies ever having ever received blood transfusions in the past. - Past Medical History DOCTOR OF NAPRAPATHIC MEDICINE: No: Alzheimer's, CVA, Dementia, Migraine, Multiple Sclerosis, Peripheral Neuropathy, Parkinson's, Seizure, Syncope, TIA, Vertigo, Other Cardiovascular: No: AFIB, Aneurysm, Aortic Insufficiency, Aortic Stenosis, CAD, CHF, Deep Vein Thrombosis, HTN, Hyperlipdemia, ND, Mitral Insufficiency, Mitral Stenosis, Murmur, Pulmonary Hypertension, Other Pulmonary: No: Asthma, Bronchitis, Cancer, COPD, O2 Dependent, Pneumonia, Previously Intubated, Pulmonary Embolus, Pulmonary Fibrosis, Sleep Apnea, Other Gastrointestinal: No: Ascites, Cancer, Constipation, Crohn's Disease, Diverticulitis, Diverticulosis, Esophageal Varices, Gastritis, GERD, GI Bleed, Hemorrhoids, Hiatal Hernia, Inflamatory Bowel Disease, Irritable Bowel Disease, Pancreatitis, Peptic Ulcer Disease, Ulcerative Colitis, Other Hepatobiliary: No: Cirrhosis, Cholelithiasis, Cholecystitis, Choledocholithiasis , Hepatitis A, Hepatitis B, Hepatitis C, Other ...LMP: 06/25/16 ...: No Heme/Onc: Yes: Anemia, Other (hx low WBC in past yrs) Endocrine: No: Bibb's Disease, [place]'s Disease, Diabetes Insipidus, Diabetes Mellitus, Hyperparathyroidism, Hyperthyroidism, Hypothyroidism, Osteopenia, SIADH, Other Dermatology: No: Basal Cell, Cellulitis, Eczema, Melanoma, Psoriasis, Squamous Cell, Other - Past Surgical History Past Surgical History: Yes: Bariatric Surgery (gastric bypass (? 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 [employer] History of Recent Travel: No Home Medications - Allergies Allergies/Adverse Reactions: Allergies Allergy/AdvReac Type Severity Reaction Status Date / Time Iodinated Contrast Media - Allergy Intermediate Rash Verified 07/02/16 23:14 Oral and Iv Dye Allergy Intermediate Rash Uncoded 07/02/16 18:46 - Home Medications Home Medications: Ambulatory Orders NK [No Known Home Medication] 07/02/16 Family Disease History - Family Disease History Family Disease History: Other: Father (65: mental illness), Mother (58: healthy) , Brother (healthy), Daughter (healthy) Other Family History: No family history of colorectal cancer, liver disease Physical Examination Vital Signs: Vital Signs Temperature 98.4 F 07/03/16 14:00 Pulse Rate 76 07/03/16 14:00 Respiratory Rate 17 07/03/16 14:00 Blood Pressure 103/60 07/03/16 09:00 O2 Sat by Pulse Oximetry (%) 97 07/03/16 09:00 Labs: CBC, BMP 07/03/16 07:00 07/03/16 05:35 Imaging - Results Chest X-ray: Report Reviewed (Questionable atelectatic change in posterior base) Cat Scan: Report Reviewed (Spleen was mildly prominent, no bowel obstruction, appendicitis, or acute pathology. No oral contrast in colon.) Assessment/Plan Pt is a 31yo F with resolved abdominal pain and nonblood/nonmucoid diarrhea possibly secondary to gastroenteritis due to recent sick contact and negative Xray/CT. Pt also has pancytopenia of unknown cause and a diffuse maculopapular rash through her entire body, likely secondary to an allergic reaction to contrast dye. 1. Diarrhea - Possible gastroenteritis - Continue IVF, antibiotics 2. Pancytopenia - Unknown cause - Monitor blood count - Try to obtain prior records from PCP to assess baseline CBC 3. Rash - Allergic reaction to contrast vs. systemic process. - Rash appears to be resolving.
--- NOTE | 2016-07-03 16:41 | PN ---
GI Progress Note Subjective: Abdominal pain improved Reviewed CT scan with Dr. Sauer given findings from US: no portal vein thrombosis, hepatic veins patent. + splenomegaly Loose BM's this morning Fevers persist as does rash, which as per the patient, was noted before she went for CT scan last night - Objective Vital Signs: Vital Signs Temperature 98.4 F 07/03/16 14:00 Pulse Rate 76 07/03/16 14:00 Respiratory Rate 17 07/03/16 14:00 Blood Pressure 103/60 07/03/16 09:00 O2 Sat by Pulse Oximetry (%) 97 07/03/16 09:00 Constitutional: Calm Eyes: No: Sclera Icterus HENT: Yes: Other (No oropharyngeal lesions) Cardiovascular: Yes: Tachycardia Respiratory: Yes: CTA Bilaterally Gastrointestinal Inspection: No: Distention ...Auscultate: Yes: Normoactive Bowel Sounds ...Palpate: No: Tenderness Integumentary: Yes: Rash (diffuse) Neurological: Yes: Alert, Oriented Labs: CBC, BMP 07/03/16 07:00 07/03/16 05:35 INR, PTT INR 1.53 (0.82-1.09) H 07/03/16 07:00 Fibrinogen 289.0 mg/dL (238-498) 07/03/16 05:35 Problem List - Problems (1) Lower abdominal pain Assessment/Plan: Resolved Loose BM's: stool studies ordered Code(s): R10.30 - LOWER ABDOMINAL PAIN, UNSPECIFIED (2) Abnormal liver enzymes Assessment/Plan: ? reactive secondary to systremic process ordered EBV PCR avoid heptotoxic agents Code(s): R74.8 - ABNORMAL LEVELS OF OTHER SERUM ENZYMES (3) Pancytopenia Assessment/Plan: ? viral etiology Heme following ID following Code(s): D61.818 - OTHER PANCYTOPENIA (4) Rash Assessment/Plan: Persists, along with fever ID / Heme following Code(s): R21 - RASH AND OTHER NONSPECIFIC SKIN ERUPTION
[2016-07-03] MEDS ORDERED: NAPH,MB-DB/K PH,MBDB POWDER PACKET PO ONE (16:57)
--- NOTE | 2016-07-03 16:59 | PN ---
Teaching Attending Note Name of Resident: Kirby Khan ATTENDING PHYSICIAN STATEMENT I saw and evaluated the patient. I reviewed the resident's note and discussed the case with the resident. I agree with the resident's findings and plan as documented. SUBJECTIVE:states abdominal pain has improved significantly and requesting to eat. 5 loose BM since presentation which she states is improved since admission. states her father is also having profuse diarrhea. continues to have rash but has not worsened since presentation, started after she completed drinking contrast but prior to IV given. had similar presentation prior to having many years ago but was contributed to stress, only difference in that event was she also had significant lip swelling which she does not have at this time. states shes been told since a child she was anemia and claims she had full workup done but denies bone bx. states she has followed up with physician but does not recall name or where office is located. no hx of STD's. no recent travel. family hx significant for DM but no other medical problems or autoimmune diseases OBJECTIVE: Last Vital Signs Temp Pulse Resp BP Pulse Ox 98.4 F 76 17 103/60 97 07/03/16 14:00 07/03/16 14:00 07/03/16 14:00 07/03/16 09:00 07/03/16 09:00 General NAD CV S1 S2 RRR no murmur/rub/gallop Abdomen soft NT/ND no organomegaly appreciated Skin diffuse maculopapular rash on chest, abdomen and all extremities. no excoriations or scaling ASSESSMENT AND PLAN: 31 yo F with PMH multiple abdominal surgeries presented to the ER and was admitted for further evaluation of their emergent condition 1. sepsis due to Acute gastroenteritis- Tm 102.7 CT abdomen/pelvis negative for acute pathology. seems to be improving. possible viral. will advance diet as tolerated. viral studies pending (norovirus, EBV, rotavirus) will add parvovirus as this can present with aplastic crisis and splenic sequestration and rash. received Vanco and Zosyn in the ER and placed on levaquin empirically by ID. ID and GI tolerating 2. petechial rash- likely drug rash. appears stable. monitor 3. Hypokalemia- Kcl 40meq 4. Hypophosphatemia- neutraphos 5. Pancytopenia- as per pt had workup for this and not new. will need to obtain old labs and workup that has been completed. continues to trend down but this may be partially dilutional with IVF given. appreciated hematology review. plan for possible bone bx if does not improve. awaiting old reports. HIV negative 6. DVT ppx-SCD. hold in setting of thrombocytopenia and anemia
[2016-07-03] MEDS ORDERED: VANCOMYCIN 1 GRAM (PRE-DOCKED) 250 ML IVPB ONE (17:15)
[2016-07-03] MEDS: POTASSIUM CHLORIDE 40 MEQ/30 ML UNIT DOSE CUP PO ONE ×2 (17:15→18:56)
[2016-07-03] MEDS: SODIUM CHLORIDE 1,000 ML IV SCH (18:52)
[2016-07-03] MEDS ORDERED: POTASSIUM CHLORIDE TABS 20 MEQ TABLET.ER (FP) PO ONE ×2 (19:04→21:45)
--- NOTE | 2016-07-03 20:56 | PN ---
Physical Exam: SUBJECTIVE: Patient seen and examined at bed side. patietn reports pain is much better, diarrhea has resolved. patient still reports a Diffuse non pruritic rash on chest, report sick contact with similar symptoms. patient reports rash started after taking several medcation and oral contrast prior to recieving IV contrast. patient reports several episodes of similir rash and+/- swelling of lips, never having difficulty breathing and never intubated. patient reports arm and legs swelling. reports hands pain, has difficulty closing fingers and attributes it to the swelling. patient reports extensive workup in the past for her anemia last done at an urgent care, awaiting results to be faxed. to note: patient reports having sever anemia and recurrent infections while growing up. OBJECTIVE: Vital Signs Period Temp Pulse Resp BP Sys/Mcdaniels Pulse Ox Last 24 Hr 98.4 F-100.3 F 76-88 16-18 101-105/59-66 97-97 GENERAL: The patient is awake, alert, and fully oriented, in no acute distress. HEAD: Normal with no signs of trauma. EYES: extraocular movements intact, sclera anicteric, conjunctiva clear. ENT: Ears normal, nares patent, oropharynx clear without exudates, moist mucous membranes. NECK: Trachea midline, full range of motion, supple, no JVD LUNGS: Breath sounds equal, clear to auscultation bilaterally, no wheezes, no crackles, no accessory muscle use. HEART: Regular rate and rhythm, S1, S2 without murmur, rub or gallop. ABDOMEN: Soft, nontender, nondistended, normoactive bowel sounds, no guarding, no rebound, no hepatosplenomegaly, no masses. EXTREMITIES: 2+ pulses, warm, well-perfused, no edema. NEUROLOGICAL: CN grossly intact, Normal speech, gait not observed. PSYCH: Normal mood, normal affect. Skin: Diffuse maculopapular rash on chest, abdomen and all extremities, sparing the face and palms and soles, no excoriations or scaling Laboratory Results - last 24 hr 07/03/16 07/03/16 07/03/16 05:35 05:35 05:35 WBC RBC Hgb Hct MCV MCHC RDW Plt Count MPV Neutrophils % Lymphocytes % Monocytes % Differential Comment INR PTT (Actin FS) Fibrinogen Sodium 137 Potassium 3.6 Chloride 106 Carbon Dioxide 24 Anion Gap 7 L BUN 8 Creatinine 0.6 Creat Clearance w eGFR > 60 Random Glucose 112 H Calcium 7.8 L Phosphorus 2.2 L Magnesium 1.8 Total Bilirubin 0.7 D AST 112 H ALT 95 H Alkaline Phosphatase 210 H Total Protein 5.9 L Albumin 2.6 L D Vitamin B12 Serum Folate Monoscreen Negative HIV 1&2 Antibody Screen Negative HIV P24 Antigen Negative 07/03/16 07/03/16 07/03/16 05:35 05:35 07:00 WBC RBC Hgb Hct MCV MCHC RDW Plt Count MPV Neutrophils % Lymphocytes % Monocytes % Differential Comment INR 1.53 H PTT (Actin FS) 33.2 Fibrinogen 289.0 Sodium Potassium Chloride Carbon Dioxide Anion Gap BUN Creatinine Creat Clearance w eGFR Random Glucose Calcium Phosphorus Magnesium Total Bilirubin AST ALT Alkaline Phosphatase Total Protein Albumin Vitamin B12 5727 H Serum Folate 19 H Monoscreen HIV 1&2 Antibody Screen HIV P24 Antigen 07/03/16 07:00 WBC 1.6 L RBC 3.81 Hgb 7.9 L D Hct 25.4 L D MCV 66.7 L MCHC 31.1 L RDW 16.7 H Plt Count 89 L MPV 9.5 Neutrophils % 64.0 D Lymphocytes % 26.0 D Monocytes % 10.0 D Differential Comment Manual diff done INR PTT (Actin FS) Fibrinogen Sodium Potassium Chloride Carbon Dioxide Anion Gap BUN Creatinine Creat Clearance w eGFR Random Glucose Calcium Phosphorus Magnesium Total Bilirubin AST ALT Alkaline Phosphatase Total Protein Albumin Vitamin B12 Serum Folate Monoscreen HIV 1&2 Antibody Screen HIV P24 Antigen Active Medications Generic Name Dose Route Start Last Admin Trade Name Freq PRN Reason Stop Dose Admin Acetaminophen 500 mg 07/02/16 23:39 07/03/16 20:12 Tylenol - PO 500 mg Q6H PRN Administration FEVER OR PAIN Cyanocobalamin 100 mcg 07/03/16 10:00 07/03/16 10:24 Vitamin B12 - PO 100 mcg DAILY YOSELIN Administration Ferrous Sulfate 325 mg 07/03/16 10:00 07/03/16 10:25 Feosol - PO 325 mg BID YOSELIN Administration Sodium Chloride 1,000 mls @ 100 mls/hr 07/02/16 22:45 07/03/16 18:52 Normal Saline - IV 100 mls/hr ASDIR YOSELIN Administration Levofloxacin 100 mls @ 100 mls/hr 07/03/16 12:00 07/03/16 12:12 Levaquin 500 Mg Premixed Ivpb - IVPB 100 mls/hr DAILY YOSELIN Administration ASSESSMENT/PLAN: This is a 31 yo F with a PMH of childhood anemia and gastric bypass in 2010, who presents due to abdominal pain and developed diarrhea x 3 days. resent sick contact. After oral contrast prior to CT scan, she spiked a fever for 102.7 ( afebrile on presentation) and developed a nonitichy, painless macular rash over her arms and legs. She was given benadryl and decadron with relief in rash and fever. sepsis secondary to Acute gastroenteritis: most likely due to viral etiology. -viral studies pending (norovirus, EBV, rotavirus, parvovirus) -viral vs bacterial -s/p vanco, zosyn - levaquin empirically per ID. -IVF NS @ 100 -tolerating soft diet -celiac serology -Gi consult appreciated maculopapular rash most likley secondary to a drug reaction or stress induced or viral syndrome -stable -will monitor Pancytopenia-chronic vs infectious vs oncologic -Anemia: chronic component with exacerbation likley due to Fe deficiency ( noncompliant with Fe supplenemts in setting of Gastric bypass) -stool guaiac negative -f/u fe studies -Leukopenia/ttp -splenomegaly, transaminitis -heme consult -f/u hepatitis panel, HIV -possible fatty liver -f/u blood and urine cultures -possible bone marrow biopsy check B12/folate ,iron studies, haptoglobin.I check PT/PTT , Fibrinogen, and order Hemoglobin electropheresis Hypokalemia- patietn refused and not Kcl oral solution -gave Kdure 40mg PO once Hypophosphatemia -neutraphos Pancytopenia- as per pt had workup for this and not new. -awaiting lab report from urgent care 2014 Rash -occurred soon after IV contrast administration -macular, painless, no pruritus -associated with fever spike 102.7 -s/p decadron and Benadryl -resolving FEN NS@100 lytes replete hypokalemia DVT GI PPX: scd, diet celars DVT ppx-SCD. no AC or no asa (hold in setting of thrombocytopenia and anemia) Dispo: admit to med surge Visit type - Emergency Visit Emergency Visit: Yes ED Registration Date: 07/02/16 Care time: The patient presented to the Emergency Department on the above date and was hospitalized for further evaluation of their emergent condition. - New Patient This patient is new to me today: Yes Date on this admission: 07/02/16 - Critical Care Critical Care patient: No
[2016-07-04] MEDS: SODIUM CHLORIDE 1,000 ML IV SCH ×2 (05:16→16:40)
[2016-07-04 06:06] LABS: HEP B SURFACE AB Non Reactive (.)
[2016-07-04 06:06] LABS: SERUM IRON 13 ug/dL (27-159); TOTAL IRON BINDING CAPACITY 290 ug/dL (250-450); UIBC 277 ug/dL (131-425)
[2016-07-04] MEDS: ACETAMINOPHEN 500 MG TABLET (FP) PO PRN ×4 (06:16→23:48)
[2016-07-04 08:25] LABS: MCH 21.1 pg (25.7-33.7); MCHC 31.7 g/dl (32.0-36.0); MEAN CELL VOLUME 66.4 fl (80-96); MEAN PLT VOLUME 9.1 fl (7.5-11.1); PLATELET COUNT 115 K/MM3 (134-434); WHITE BLOOD COUNT 2.2 K/mm3 (4.0-10.0)
[2016-07-04 08:53] LABS: ALBUMIN 2.4 g/dl (3.4-5.0); ANION GAP 5 (8-16); CALCIUM 7.2 mg/dL (8.5-10.1); CO2 20 mmol/L (21-32); GLUCOSE,RANDOM 81 mg/dL (74-106); MAGNESIUM 1.8 mg/dL (1.8-2.4)
[2016-07-04 08:57] LABS: ALK PHOS 201 U/L (45-117); BILIRUBIN,TOTAL 0.5 mg/dL (0.2-1.0); CREATININE 0.5 mg/dL (0.55-1.02); SGOT/AST 162 U/L (15-37); SGPT/ALT 121 U/L (12-78); TOT PROT 5.4 g/dl (6.4-8.2)
[2016-07-04] MEDS: CYANOCOBALAMIN (VITAMIN B-12) 100 MCG TABLET PO SCH (10:32)
[2016-07-04] MEDS: FERROUS SO4 325 MG TABLET (FP) PO SCH (10:32)
[2016-07-04] MEDS: LEVOFLOXACIN 500 MG IVPB 100 ML IVPB SCH (10:33)
--- NOTE | 2016-07-04 14:10 | PN ---
Teaching Attending Note Name of Resident: Kirby Khan ATTENDING PHYSICIAN STATEMENT I saw and evaluated the patient. I reviewed the resident's note and discussed the case with the resident. I agree with the resident's findings and plan as documented. SUBJECTIVE:diarrhea continues to improve (3 episodes today), also notes abdominal pain has resolved. rash is improving. continues to feel lethargic but states she is always tired. denies CP, SOB,fever, chills, OBJECTIVE: Last Vital Signs Temp Pulse Resp BP Pulse Ox 98.8 F 75 20 112/63 95 07/04/16 09:32 07/04/16 09:32 07/04/16 09:32 07/04/16 09:32 07/03/16 21:00 General NAD CV S1 S2 RRR no murmur/rub/gallop Abdomen soft NT/ND no organomegaly appreciated Skin faint diffuse maculopapular rash on chest, abdomen and all extremities. no excoriations or scaling, swelling of the joints of the hands ASSESSMENT AND PLAN: 31 yo F with PMH multiple abdominal surgeries presented to the ER and was admitted for further evaluation of their emergent condition 1. sepsis due to Acute gastroenteritis- Tm 101.9. clinically looks improved and states she overall feels better. viral studies pending. on empiric levaquin. will await Cx. ID and GI on board. 2. petechial rash- likely drug rash. improving 3. Hypokalemia- resolved 4. Hypophosphatemia- neutraphos 5. Pancytopenia- old labs obtained from 2014, all blood lines were WNL. most recent labs available. labs here appear to be stable however remains pancytopenic. will call out to hematology if would want to pursue bone marrow bx at this time. iron deficiency would probably benefit from Venofer as may be absorption problem aspect to iron deficiency but as per hematology should wait. awaiting hematology recommendations. 6. DVT ppx-SCD. hold in setting of thrombocytopenia and anemia
--- NOTE | 2016-07-04 14:14 | MSN ---
Progress Note (short form) - Note Progress Note: Pt is a 31yo F with PHx of gastric bypass (likely a wilbert-en-y in 2010) and childhood anemia (unknown type). Pt was seen and examined bedside this morning. Pt's abdominal pain has resolved, but the pt is still experiencing diarrhea. She had one loose BM this morning (non-blood, non-mucoid) which was collected for culture. Pt is still complaining of dry mouth. Pt also had a slight cough this morning with minimal blood in her sputum likely due to her dry mouth. Her skin rash appears to be improving. The swelling in her arms and legs have also been improving, but is still present. Pt spiked a fever of 101.9F this morning around 6AM but was given tylenol PRN. Pt's currently afebrile at 98.9F. Pt denies headache, CP, SOB, chills, changes in vision, nausea, or vomiting. Pt is still able to eat toast without any irritation. Pt has no other complaints at this time. The pt's prior blood work in January 2015 was obtained from the urgent care she had visited (records were placed in her chart). When asked further about any recent changes in diet since her last blood work in 2014, she said that she had not been compliant with taking her multivitamins; she also admits to having a craving for ice (pica) for a period of time.
[2016-07-04] MEDS: NAPH,MB-DB/K PH,MBDB POWDER PACKET PO SCH ×2 (14:23→21:15)
--- NOTE | 2016-07-04 14:53 | PN ---
Progress Note, Physician History of Present Illness: Feeling better No c/o abdominal pain Diarrhea improved Temps down WBC,plt count improved BC (-) C diff, O&P(-) - Current Medication List Current Medications: Active Medications Acetaminophen (Tylenol -) 500 mg PO Q6H PRN PRN Reason: FEVER OR PAIN Last Admin: 07/04/16 12:00 Dose: 500 mg Cyanocobalamin (Vitamin B12 -) 100 mcg PO DAILY [facility] Last Admin: 07/04/16 10:32 Dose: 100 mcg Sodium Chloride (Normal Saline -) 1,000 mls @ 100 mls/hr IV ASDIR YOSELIN Last Admin: 07/04/16 05:16 Dose: 100 mls/hr Levofloxacin (Levaquin 500 Mg Premixed Ivpb -) 100 mls @ 100 mls/hr IVPB DAILY [facility] Last Admin: 07/04/16 10:33 Dose: 100 mls/hr Potassium Phos/Sodium Phos (Phos-Nak Packet -) 1 packet PO BID [facility] Last Admin: 07/04/16 14:23 Dose: 1 packet - Objective Vital Signs: Vital Signs Temperature 98.8 F 07/04/16 09:32 Pulse Rate 75 07/04/16 09:32 Respiratory Rate 20 07/04/16 09:32 Blood Pressure 112/63 07/04/16 09:32 O2 Sat by Pulse Oximetry (%) 95 07/03/16 21:00 Constitutional: Yes: No Distress Eyes: Yes: Conjunctiva Clear Cardiovascular: Yes: Regular Rate and Rhythm, S1, S2 Respiratory: Yes: CTA Bilaterally Gastrointestinal: Yes: Normal Bowel Sounds, Soft. No: Tenderness Edema: No Integumentary: Yes: Other (resolving generalized rash) Labs: CBC, BMP 07/04/16 07:15 07/04/16 07:15 INR, PTT INR 1.53 (0.82-1.09) H 07/03/16 07:00 Fibrinogen 289.0 mg/dL (238-498) 07/03/16 05:35 Assessment/Plan Acute gastroenteritis, possibly viral- improved Pancytopenia Probable drug rash- resolving Continue empiric levaquin Check stool studies
--- NOTE | 2016-07-04 16:30 | PN ---
GI Progress Note Subjective: GI NOte: Diarrhea subsiding. No cramps. - Objective Vital Signs: Vital Signs Temperature 98.4 F 07/04/16 15:40 Pulse Rate 72 07/04/16 15:40 Respiratory Rate 20 07/04/16 09:32 Blood Pressure 104/67 07/04/16 15:40 O2 Sat by Pulse Oximetry (%) 95 07/04/16 09:00 CBC, BMP 07/04/16 07:15 07/04/16 07:15 Constitutional: Calm ...Auscultate: Yes: Normoactive Bowel Sounds ...Palpate: Yes: Soft, Other (nontender) Labs: CBC, BMP 07/04/16 07:15 07/04/16 07:15 INR, PTT INR 1.53 (0.82-1.09) H 07/03/16 07:00 Fibrinogen 289.0 mg/dL (238-498) 07/03/16 05:35 Assessment/Plan Agree that picture most consistent with resolving viral gastroenteritis and coexistant DAVID. Advised to avoid dairy for at least 7 days.
[2016-07-04] MEDS ORDERED: ACETAMINOPHEN 325 MG TABLET (FP) ONE (17:43)
--- NOTE | 2016-07-04 20:23 | PN ---
Physical Exam: SUBJECTIVE: Patient seen and examined patient reports abd pain resolvedr, diarrhea has resolved. less pain and swelling in hands and feet, able to move them better. Diffuse non pruritic rash resolving recurrent fevers last night Tmax 101.9. labs obtained 2015 all blood lines wNL. patient pancytopenic will apreciate heme input on bone biopsy and evaluation of iron supplement benefit. OBJECTIVE: Vital Signs Period Temp Pulse Resp BP Sys/Mcdaniels Pulse Ox Last 24 Hr 98.4 F-101.9 F 72-84 20-20 104-120/60-80 95-95 GENERAL: The patient is awake, alert, and fully oriented, in no acute distress. HEAD: Normal with no signs of trauma. EYES: extraocular movements intact, sclera anicteric, conjunctiva clear. ENT: Ears normal, nares patent, oropharynx clear without exudates, moist mucous membranes. NECK: Trachea midline, full range of motion, supple, no JVD LUNGS: Breath sounds equal, clear to auscultation bilaterally, no wheezes, no crackles, no accessory muscle use. HEART: Regular rate and rhythm, S1, S2 without murmur, rub or gallop. ABDOMEN: Soft, nontender, nondistended, normoactive bowel sounds, no guarding, no rebound, no hepatosplenomegaly, no masses. EXTREMITIES: 2+ pulses, warm, well-perfused, no edema. NEUROLOGICAL: CN grossly intact, Normal speech, gait not observed. PSYCH: Normal mood, normal affect. Skin: Diffuse maculopapular rash on chest, abdomen and all extremities, sparing the face and palms and soles, no excoriations or scaling Laboratory Results - last 24 hr 07/03/16 07/03/16 07/04/16 05:35 06:00 07:15 WBC 2.2 L D RBC 3.75 Hgb 7.9 L Hct 24.9 L MCV 66.4 L MCHC 31.7 L RDW 17.0 H Plt Count 115 L D MPV 9.1 Sodium Potassium Chloride Carbon Dioxide Anion Gap BUN Creatinine Creat Clearance w eGFR Random Glucose Calcium Phosphorus Magnesium Iron 13 L TIBC 290 Iron Saturation 4 L Total Bilirubin AST ALT Alkaline Phosphatase Total Protein Albumin Hepatitis A Ab Total Negative Hep Bs Antigen Negative Hep Bs Antibody Non reactive Hep B Core Total Ab Negative Hepatitis C Antibody 0.5 12/30/16 07:15 WBC RBC Hgb Hct MCV MCHC RDW Plt Count MPV Sodium 130 L Potassium 3.5 Chloride 105 Carbon Dioxide 20 L Anion Gap 5 L BUN 6 L D Creatinine 0.5 L Creat Clearance w eGFR > 60 Random Glucose 81 D Calcium 7.2 L Phosphorus 2.0 L Magnesium 1.8 Iron TIBC Iron Saturation Total Bilirubin 0.5 D AST 162 H D ALT 121 H D Alkaline Phosphatase 201 H Total Protein 5.4 L Albumin 2.4 L Hepatitis A Ab Total Hep Bs Antigen Hep Bs Antibody Hep B Core Total Ab Hepatitis C Antibody Active Medications Generic Name Dose Route Start Last Admin Trade Name Freq PRN Reason Stop Dose Admin Acetaminophen 500 mg 07/02/16 23:39 07/04/16 17:44 Tylenol - PO 500 mg Q6H PRN Administration FEVER OR PAIN Cyanocobalamin 100 mcg 07/03/16 10:00 07/04/16 10:32 Vitamin B12 - PO 100 mcg DAILY YOSELIN Administration Sodium Chloride 1,000 mls @ 100 mls/hr 07/02/16 22:45 07/04/16 16:40 Normal Saline - IV 100 mls/hr ASDIR YOSELIN Administration Levofloxacin 100 mls @ 100 mls/hr 07/03/16 12:00 07/04/16 10:33 Levaquin 500 Mg Premixed Ivpb - IVPB 100 mls/hr DAILY YOSELIN Administration Potassium Phos/Sodium Phos 1 packet 07/04/16 13:30 07/04/16 14:23 Phos-Nak Packet - PO 1 packet BID YOSELIN Administration ASSESSMENT/PLAN: This is a 31 yo F with a PMH of childhood anemia and gastric bypass in 2010, who presents due to abdominal pain and developed diarrhea x 3 days. resent sick contact. After oral contrast prior to CT scan, she spiked a fever for 102.7 ( afebrile on presentation) and developed a nonitichy, painless macular rash over her arms and legs. She was given benadryl and decadron with relief in rash and fever. Pancytopenia- old labs obtained from 2014, all blood lines were WNL. most recent labs available. labs here appear to be stable however remains pancytopenic. will call out to hematology if would want to pursue bone marrow bx at this time. iron deficiency would probably benefit from Venofer as may be absorption problem aspect to iron deficiency but as per hematology should wait. awaiting hematology recommendations. sepsis (fevers, low WBC) secondary to Acute gastroenteritis: most likely due to viral etiology. -viral studies pending (norovirus, EBV, rotavirus, parvovirus) -viral vs bacterial -s/p vanco, zosyn - levaquin empirically per ID. -IVF NS @ 100 -tolerating soft diet -celiac serology -per GI Advised to avoid dairy for at least 7 days Maculopapular rash most likley secondary to a drug reaction or stress induced or viral syndrome -improving -will monitor Pancytopenia-chronic vs infectious vs oncologic -Anemia: chronic component with exacerbation likley due to Fe deficiency ( noncompliant with Fe supplenemts in setting of Gastric bypass) -stool guaiac negative -f/u fe studies -Leukopenia/ttp -splenomegaly, transaminitis -heme consult -f/u hepatitis panel, HIV -possible fatty liver -f/u blood and urine cultures -possible bone marrow biopsy check B12/folate ,iron studies, haptoglobin.I check PT/PTT , Fibrinogen, and order Hemoglobin electropheresis inc in transaminase may be secondary to tylenol use. Hypokalemia- patietn refused and not Kcl oral solution -gave Kdure 40mg PO once Hypophosphatemia -neutraphos Pancytopenia- labs obtained 2015 all blood lines wNL. patient pancytopenic will apreciate heme input on bone biopsy and evaluation of iron supplement benefit. -awaiting hemetology input Rash -occurred soon after IV contrast administration -macular, painless, no pruritus -associated with fever spike 102.7 -s/p decadron and Benadryl -resolving FEN NS@100 lytes replete hypokalemia DVT GI PPX: scd, diet avoid dairy for at least 7 days celars DVT ppx-SCD. no AC or no asa (hold in setting of thrombocytopenia and anemia) Dispo: continue to follow Visit type - Emergency Visit Emergency Visit: Yes ED Registration Date: 07/02/16 Care time: The patient presented to the Emergency Department on the above date and was hospitalized for further evaluation of their emergent condition. - New Patient This patient is new to me today: No - Critical Care Critical Care patient: No
--- NOTE | 2016-07-04 22:27 | PN ---
Progress Note, Physician Chief Complaint: Diarrhea improved s/p fever History of Present Illness: 31 y/o F w hx gastric bypass, chronic mild loose stool, hx " low white blood count" in past, hx iron def. anemia on iron in past, nl menses , developed fatigue recently, stress at home, did heavy lifting ,developed diffuse abdo pains, mostly in lower quadrants , decreased PO intake, looser stools than usual ; no fever but had occ chills. She went to ER and had CT a/p w contrast , had mild allergic reaction w rash and fever 102. CBC showed WBC 2.1 w unremarkable diff. H/H 9.7/30.8 MCV 67 ,plates 106K Retic 0.9. CT a/p unrevealing ,trace B/L pleural effusions ., US abd. w mild splenomegaly 14.7X 11X 6cm , mild dilatation main portal vein, liver nl;CMP shows ALK 224 [id number] AST 127, Ferritin 71; CXR neg ? atelectasis at bases.Pt started on empirical ab' s Pip/Vanco after cultures. .Pt feeling slightly better. Now pt on levaquin , possible viral gastroenteritis , reactive LFT elevation .Persistent mild pancytopenia ; afebrile . - Current Medication List Current Medications: Active Medications Acetaminophen (Tylenol -) 500 mg PO Q6H PRN PRN Reason: FEVER OR PAIN Last Admin: 07/04/16 17:44 Dose: 500 mg Cyanocobalamin (Vitamin B12 -) 100 mcg PO DAILY YOSELIN Last Admin: 07/04/16 10:32 Dose: 100 mcg Sodium Chloride (Normal Saline -) 1,000 mls @ 100 mls/hr IV ASDIR YOSELIN Last Admin: 07/04/16 16:40 Dose: 100 mls/hr Levofloxacin (Levaquin 500 Mg Premixed Ivpb -) 100 mls @ 100 mls/hr IVPB DAILY [facility] Last Admin: 07/04/16 10:33 Dose: 100 mls/hr Potassium Phos/Sodium Phos (Phos-Nak Packet -) 1 packet PO BID YO[facility]IN Last Admin: 07/04/16 21:15 Dose: 1 packet - Objective Vital Signs: Vital Signs Temperature 98.4 F 07/04/16 21:17 Pulse Rate 70 07/04/16 21:17 Respiratory Rate 20 07/04/16 21:17 Blood Pressure 102/70 07/04/16 21:17 O2 Sat by Pulse Oximetry (%) 95 07/04/16 09:00 Constitutional: Yes: Well Nourished, No Distress, Calm Eyes: Yes: Conjunctiva Clear, EOM Intact HENT: Yes: WNL, Atraumatic, Normocephalic Neck: Yes: WNL, Supple, Trachea Midline Cardiovascular: Yes: WNL, Regular Rate and Rhythm Respiratory: Yes: WNL, Regular, CTA Bilaterally Gastrointestinal: Yes: WNL, Normal Bowel Sounds, Soft, Abdomen, Obese. No: Ascites, Distention, Hematemesis, Hemorrhoids, Hepatomegaly, Hernia, Hyperactive Bowel Sounds, Hypoactive Bowel Sounds, Melena, Palpable Mass, Pulsatile Mass, Rectal Bleeding, Splenomegaly, Tenderness, Tenderness, Epigastrium, Tenderness, Rebound, Vomiting, Other Neurological: Yes: WNL, Alert, Oriented ...Motor Strength: WNL Psychiatric: Yes: WNL Labs: CBC, BMP 07/04/16 07:15 07/04/16 07:15 INR, PTT INR 1.53 (0.82-1.09) H 07/03/16 07:00 Fibrinogen 289.0 mg/dL (238-498) 07/03/16 05:35 Problem List - Problems (1) Neutropenia Code(s): D70.9 - NEUTROPENIA, UNSPECIFIED (2) Pancytopenia Code(s): D61.818 - OTHER PANCYTOPENIA (3) Rash Code(s): R21 - RASH AND OTHER NONSPECIFIC SKIN ERUPTION (4) Thrombocytopenia Code(s): D69.6 - THROMBOCYTOPENIA, UNSPECIFIED Assessment/Plan Pt w clinical picture of a gastroenteritis and an iron def anemia , unexplained leukopenia and mild thrombocytopenia ,mild splenomegaly. Options include conservative management , observation of counts(since there may be temporary bone marrow suppression) or proceed w bone marrow exam to r/o out any primary bone marrow diseases ; will try to do BM exam tomorrow , shanon since insurance issues may make BM exam problematic as outpatient . Please order Venofer 200mg IVPB X 1 dose Sat. for pt to get head start since oral supp. may be difficult after her GI situation/gastroenteritis.If she remains afebrile can finish ab course as outpatient and f/u as outpatient.
[2016-07-05] MEDS: SODIUM CHLORIDE 1,000 ML IV SCH (02:24)
[2016-07-05] MEDS: ACETAMINOPHEN 500 MG TABLET (FP) PO PRN ×2 (06:09→21:29)
[2016-07-05 07:19] LABS: BASOPHIL 0.5 % (0-2.0); EOSINOPHIL 0.1 % (0-4.5); MCHC 31.4 g/dl (32.0-36.0); PLATELET COUNT 130 K/MM3 (134-434); RDW 16.6 % (11.6-15.6); WHITE BLOOD COUNT 2.5 K/mm3 (4.0-10.0)
[2016-07-05 07:44] LABS: ALBUMIN 2.5 g/dl (3.4-5.0); ANION GAP 8 (8-16); BILIRUBIN,TOTAL 0.4 mg/dL (0.2-1.0); CALCIUM 7.6 mg/dL (8.5-10.1); CO2 23 mmol/L (21-32); CREATININE 0.5 mg/dL (0.55-1.02); GLUCOSE,RANDOM 84 mg/dL (74-106); PHOSPHOROUS 2.5 mg/dL (2.5-4.9); SGOT/AST 194 U/L (15-37); SGPT/ALT 151 U/L (12-78); TOT PROT 5.7 g/dl (6.4-8.2)
[2016-07-05 07:45] LABS: ALK PHOS 197 U/L (45-117)
[2016-07-05] MEDS ORDERED: OXYCODONE/APAP 5/325MG COMBO TABLET PO PRN (07:55)
[2016-07-05] MEDS ORDERED: ACETAMINOPHEN 325 MG TABLET (FP) PO PRN (07:57)
[2016-07-05] MEDS: oxyCODONE HCL 5 MG TABLET PO PRN ×2 (08:22→14:46)
[2016-07-05] MEDS: NAPH,MB-DB/K PH,MBDB POWDER PACKET PO SCH ×2 (10:10→21:29)
[2016-07-05] MEDS: LEVOFLOXACIN 500 MG IVPB 100 ML IVPB SCH (10:10)
[2016-07-05] MEDS: CYANOCOBALAMIN (VITAMIN B-12) 100 MCG TABLET PO SCH (10:10)
--- NOTE | 2016-07-05 11:03 | PN ---
Progress Note (short form) - Note Progress Note: states no episodes of diarrhea since yesterday, tolerating diet. overall feels improved since admission. denies CP, SOB,fever, chills, N/V/C/D Current Medications Generic Name Dose Route Start Last Admin Trade Name Freq PRN Reason Stop Dose Admin Acetaminophen 500 mg 07/02/16 23:39 07/05/16 06:09 Tylenol - PO 500 mg Q6H PRN Administration FEVER OR PAIN Acetaminophen 325 mg 07/05/16 07:57 Tylenol - PO 07/08/16 07:56 Q4H PRN PAIN Cyanocobalamin 100 mcg 07/03/16 10:00 07/05/16 10:10 Vitamin B12 - PO 100 mcg DAILY YOSELIN Administration Sodium Chloride 1,000 mls @ 100 mls/hr 07/02/16 22:45 07/05/16 02:24 Normal Saline - IV 100 mls/hr ASDIR YOSELIN Administration Levofloxacin 100 mls @ 100 mls/hr 07/03/16 12:00 07/05/16 10:10 Levaquin 500 Mg Premixed Ivpb - IVPB 100 mls/hr DAILY YOSELIN Administration Oxycodone HCl 5 mg 07/05/16 07:57 07/05/16 08:22 Roxicodone - PO 5 mg Q4H PRN Administration PAIN Potassium Phos/Sodium Phos 1 packet 07/04/16 13:30 07/05/16 10:10 Phos-Nak Packet - PO 1 packet BID YOSELIN Administration Last Vital Signs Temp Pulse Resp BP Pulse Ox 97.9 F 69 18 107/63 95 07/05/16 08:25 07/05/16 08:25 07/05/16 08:25 07/05/16 08:25 07/04/16 22:00 General NAD CV S1 S2 RRR no murmur/rub/gallop Abdomen soft NT/ND no organomegaly appreciated Skin mild erythema across the chest and extremities. significantly improved ASSESSMENT AND PLAN: 31 yo F with PMH multiple abdominal surgeries presented to the ER and was admitted for further evaluation of their emergent condition 1. sepsis due to Acute gastroenteritis- afebrile 24H. likely viral etiology as now improving. transaminitis has remained stable over this course. no old labs to compare. on Levaquin day 3. continue for now. will advance to regular diet, avoid dairy. Stool Cx that have returned are negative at this time. viral studies pending. ID and GI on board. will d/c IVF 2. petechial rash- likely drug rash. improving 3. Hypokalemia- resolved 4. Hypophosphatemia- neutraphos 5. Pancytopenia- stable and improving. will start Venofer x5days. plan for BM bx by hematology today. w/u per hematology 6. DVT ppx-SCD. hold in setting of thrombocytopenia and anemia 7. d/c planning pending hematology workup. pt needs to travel to [facility] this week for work, requesting if safe for her to go. will defer to hematology to comment due to the immunosuppressed state. Visit type - Emergency Visit Emergency Visit: Yes ED Registration Date: 07/02/16 Care time: The patient presented to the Emergency Department on the above date and was hospitalized for further evaluation of their emergent condition. - New Patient This patient is new to me today: No - Critical Care Critical Care patient: No - Discharge Referral Referred to [facility] Med P.C.: No
[2016-07-05] MEDS ORDERED: IRON SUCROSE INJECTION 200 MG in SODIUM CHLORIDE 240 ML IVPB SCH (11:15)
--- NOTE | 2016-07-05 13:51 | PN ---
GI Progress Note Subjective: GASTROENTEROLOGY (FOR GOLD) HAD TEMP YESTERDAY, NONE TODAY, NO DIARRHEA, NO ABDOMINAL PAIN LFT'S SLIGHTLY WORSE THAN YESTERDAY STATES SHE FEELS BETTER - Objective Vital Signs: Vital Signs Temperature 97.9 F 07/05/16 08:25 Pulse Rate 69 07/05/16 08:25 Respiratory Rate 18 07/05/16 08:25 Blood Pressure 107/63 07/05/16 08:25 O2 Sat by Pulse Oximetry (%) 95 07/04/16 22:00 Constitutional: No Distress, Calm Eyes: Yes: Conjunctiva Clear HENT: Yes: WNL Cardiovascular: Yes: WNL Respiratory: Yes: WNL Gastrointestinal Inspection: Yes: WNL ...Auscultate: Yes: Normoactive Bowel Sounds ...Palpate: Yes: Soft Musculoskeletal: Yes: WNL Extremities: Yes: WNL Integumentary: Yes: Tattoos Labs: CBC, BMP 07/05/16 05:50 07/05/16 05:50 INR, PTT INR 1.53 (0.82-1.09) H 07/03/16 07:00 Fibrinogen 289.0 mg/dL (238-498) 07/03/16 05:35 Laboratory Tests 07/02/16 07/03/16 07/03/16 18:40 05:35 05:35 WBC RBC Hgb Hct MCV MCHC RDW Plt Count INR Total Bilirubin 0.7 D AST 112 H ALT 95 H Alkaline Phosphatase 210 H LD Total 294 H Vitamin B12 EBV DNA (PCR) EBV DNA Quant PCR log10 Hepatitis A Ab Total Hep Bs Antigen Hep Bs Antibody Hep B Core Total Ab Hepatitis C Antibody Monoscreen Negative 07/03/16 07/03/16 07/03/16 05:35 06:00 07:00 WBC RBC Hgb Hct MCV MCHC RDW Plt Count INR 1.53 H Total Bilirubin AST ALT Alkaline Phosphatase LD Total Vitamin B12 5727 H EBV DNA (PCR) EBV DNA Quant PCR log10 Hepatitis A Ab Total Negative Hep Bs Antigen Negative Hep Bs Antibody Non reactive Hep B Core Total Ab Negative Hepatitis C Antibody 0.5 Monoscreen 07/04/16 07/04/16 07/05/16 07:15 07:15 05:50 WBC 2.5 L RBC 3.91 Hgb 8.2 L Hct 26.2 L MCV 67.0 L MCHC 31.4 L RDW 16.6 H Plt Count 130 L INR Total Bilirubin 0.5 D AST 162 H D ALT 121 H D Alkaline Phosphatase 201 H LD Total Vitamin B12 EBV DNA (PCR) Pending EBV DNA Quant PCR log10 Pending Hepatitis A Ab Total Hep Bs Antigen Hep Bs Antibody Hep B Core Total Ab Hepatitis C Antibody Monoscreen 07/05/16 05:50 WBC RBC Hgb Hct MCV MCHC RDW Plt Count INR Total Bilirubin 0.4 AST 194 H ALT 151 H D Alkaline Phosphatase 197 H LD Total Vitamin B12 EBV DNA (PCR) EBV DNA Quant PCR log10 Hepatitis A Ab Total Hep Bs Antigen Hep Bs Antibody Hep B Core Total Ab Hepatitis C Antibody Monoscreen - ....Imaging Cat Scan: Image Reviewed Other: Image Reviewed Problem List - Problems (1) Abnormal liver enzymes Assessment/Plan: SUSPECT VIRAL DISEASE, EBV PENDING WILL CK MRCP BEFORE PATIENT IS DISCHARGED, SPOKE WITH MRI DEPT AND THEY PROMISED STUDY TO BE DONE TONIGHT PATIENT NEEDS TO BE IN [place], [place] THURSDAY Code(s): R74.8 - ABNORMAL LEVELS OF OTHER SERUM ENZYMES (2) Abdominal pain Code(s): R10.9 - UNSPECIFIED ABDOMINAL PAIN (3) Pancytopenia Code(s): D61.818 - OTHER PANCYTOPENIA (4) Rash Code(s): R21 - RASH AND OTHER NONSPECIFIC SKIN ERUPTION
[2016-07-05] MEDS ORDERED: LIDOCAINE HCL 1%, 10 MG/ML (20ML VIAL) ONE (14:19)
[2016-07-05] MEDS ORDERED: LIDOCAINE HCL 1%, 10 MG/ML (20ML VIAL) IJ ONE (14:30)
--- NOTE | 2016-07-05 15:32 | PN ---
Progress Note, Physician Chief Complaint: diarrhea, fever, fatigue History of Present Illness: Pt feeling much better ; no fever - Current Medication List Current Medications: Active Medications Acetaminophen (Tylenol -) 500 mg PO Q6H PRN PRN Reason: FEVER OR PAIN Last Admin: 07/05/16 06:09 Dose: 500 mg Acetaminophen (Tylenol -) 325 mg PO Q4H PRN PRN Reason: PAIN Stop: 07/08/16 07:56 Cyanocobalamin (Vitamin B12 -) 100 mcg PO DAILY [facility] Last Admin: 07/05/16 10:10 Dose: 100 mcg Levofloxacin (Levaquin 500 Mg Premixed Ivpb -) 100 mls @ 100 mls/hr IVPB DAILY [facility] Last Admin: 07/05/16 10:10 Dose: 100 mls/hr Iron Sucrose 200 mg/ Sodium (Chloride) 250 mls @ 250 mls/hr IVPB DAILY [facility] Stop: 07/09/16 10:59 Last Admin: 07/05/16 12:55 Dose: 250 mls/hr Oxycodone HCl (Roxicodone -) 5 mg PO Q4H PRN PRN Reason: PAIN Last Admin: 07/05/16 14:46 Dose: 5 mg Potassium Phos/Sodium Phos (Phos-Nak Packet -) 1 packet PO BID [facility] Last Admin: 07/05/16 10:10 Dose: 1 packet - Objective Vital Signs: Vital Signs Temperature 98.1 F 07/05/16 13:59 Pulse Rate 73 07/05/16 13:59 Respiratory Rate 20 07/05/16 13:59 Blood Pressure 107/63 07/05/16 08:25 O2 Sat by Pulse Oximetry (%) 95 07/04/16 22:00 Constitutional: Yes: Well Nourished, No Distress, Calm Eyes: Yes: WNL, Conjunctiva Clear, EOM Intact HENT: Yes: WNL, Atraumatic, Normocephalic Neck: Yes: Supple, Trachea Midline Cardiovascular: Yes: WNL, Regular Rate and Rhythm Respiratory: Yes: WNL, Regular, CTA Bilaterally Gastrointestinal: Yes: WNL, Normal Bowel Sounds, Soft ...Rectal Exam: Yes: Deferred. No: Erythema, Guaiac Negative, Guaiac Positive, Guaiac Trace, Hemorrhoids/External, Hemorrhoids/Internal, Induration, Inflammation, Mass, Sphincter Tone Normal, Sphincter Tone Poor, Other Musculoskeletal: Yes: WNL Extremities: Yes: WNL Edema: No Labs: CBC, BMP 07/05/16 05:50 07/05/16 05:50 INR, PTT INR 1.53 (0.82-1.09) H 07/03/16 07:00 Fibrinogen 289.0 mg/dL (238-498) 07/03/16 05:35 Problem List - Problems (1) Neutropenia Code(s): D70.9 - NEUTROPENIA, UNSPECIFIED (2) Pancytopenia Code(s): D61.818 - OTHER PANCYTOPENIA (3) Rash Code(s): R21 - RASH AND OTHER NONSPECIFIC SKIN ERUPTION (4) Thrombocytopenia Code(s): D69.6 - THROMBOCYTOPENIA, UNSPECIFIED Assessment/Plan Pancytopenia; WBC increased to 2.5 diff nl; mplates up >100K ; getting iv iron for iron def anemia; counts may be increasing s/p marrow suppression , but other etiologies possible ; will not do BM exam today and f/u as outpatient thursday [phone] 12:00 noon or in 1-2 weeks; pt seems stable for d/c
[2016-07-06 08:07] LABS: BASOPHIL 0.5 % (0-2.0); EOSINOPHIL 0.3 % (0-4.5); MCHC 31.4 g/dl (32.0-36.0); MEAN PLT VOLUME 8.7 fl (7.5-11.1); NEUTROPHILS 59.1 % (42.8-82.8); PLATELET COUNT 191 K/MM3 (134-434); WHITE BLOOD COUNT 3.3 K/mm3 (4.0-10.0)
--- NOTE | 2016-07-06 08:20 | DS ---
Physical Exam: SUBJECTIVE: Patient seen and examined at bed side. patietn feel better. her L shoulder arm pain virtually subsided she attributes it to musculature strain. tolerated lunch dinner yesterday well, last BM yesterday, no fevers, chills, N/V/D, Cp, sob, palpitations, no other complaints. OBJECTIVE: Vital Signs Period Temp Pulse Resp BP Sys/Mcdaniels Pulse Ox Last 24 Hr 97.9 F-99.3 F 68-76 18-20 104-107/63-70 95-95 PHYSICAL EXAM GENERAL: The patient is awake, alert, and fully oriented, in no acute distress. HEAD: Normal with no signs of trauma. EYES: extraocular movements intact, sclera anicteric, conjunctiva clear. ENT: Ears normal, nares patent, oropharynx clear without exudates, moist mucous membranes. NECK: Trachea midline, full range of motion, supple, no JVD LUNGS: Breath sounds equal, clear to auscultation bilaterally, no wheezes, no crackles, no accessory muscle use. HEART: Regular rate and rhythm, S1, S2 without murmur, rub or gallop. ABDOMEN: Soft, nontender, nondistended, normoactive bowel sounds, no guarding, no rebound, no hepatosplenomegaly, no masses. EXTREMITIES: 2+ pulses, warm, well-perfused, no edema. NEUROLOGICAL: CN grossly intact, Normal speech, gait not observed. PSYCH: Normal mood, normal affect. Skin: Diffuse maculopapular rash on chest, abdomen and all extremities, sparing the face and palms and soles, no excoriations or scaling LABS Laboratory Results - last 24 hr 07/06/16 07:10 WBC 3.3 L D RBC 4.31 Hgb 9.1 L D Hct 28.9 L MCV 67.0 L MCHC 31.4 L RDW 17.0 H Plt Count 191 D MPV 8.7 Neutrophils % 59.1 Lymphocytes % 33.2 Monocytes % 6.9 Eosinophils % 0.3 D Basophils % 0.5 Active Medications Generic Name Dose Route Start Last Admin Trade Name Freq PRN Reason Stop Dose Admin Acetaminophen 500 mg 07/02/16 23:39 07/05/16 21:29 Tylenol - PO 500 mg Q6H PRN Administration FEVER OR PAIN Acetaminophen 325 mg 07/05/16 07:57 Tylenol - PO 07/08/16 07:56 Q4H PRN PAIN Cyanocobalamin 100 mcg 07/03/16 10:00 07/06/16 10:17 Vitamin B12 - PO 100 mcg DAILY YOSELIN Administration Levofloxacin 100 mls @ 100 mls/hr 07/03/16 12:00 07/06/16 10:17 Levaquin 500 Mg Premixed Ivpb - IVPB 100 mls/hr DAILY YOSELIN Administration Iron Sucrose 200 mg/ Sodium 110 mls @ 220 mls/hr 07/06/16 10:00 07/06/16 11:27 Chloride IVPB 07/09/16 10:29 220 mls/hr DAILY YOSELIN Administration Oxycodone HCl 5 mg 07/05/16 07:57 07/05/16 14:46 Roxicodone - PO 5 mg Q4H PRN Administration PAIN Potassium Phos/Sodium Phos 1 packet 07/04/16 13:30 07/06/16 10:17 Phos-Nak Packet - PO 1 packet BID YOSELIN Administration ABDOMEN MRI (without contrast) including MRCP . As noted on an abdomen CT study of 06/24/2016 small left-sided and trace right-sided pleural effusions are visualized. Bilateral flank subcutaneous edema is noted which may have developed since the recent CT study. A small amount of pericholecystic fluid is seen along the superior border of the gallbladder. No obvious gallbladder calculus is noted. There is no definite gallbladder overdistention or wall edema. No discrete intraductal calculus is seen. There is no intrahepatic or extrahepatic biliary tract dilatation. The common bile duct diameter is 0.3 cm. As visualized on CT the spleen is enlarged measuring approximately 14.7 x 10.7 x 5.7 cm cm. The splenic vein appears patent. There appears to be mild dilatation of the extrahepatic main portal vein with a 1.7 cm diameter which is suggestive of increased portal pressure. The liver, pancreas, adrenal glands and kidneys demonstrate no discrete noncontrast abnormality. There is no aortic aneurysm. No free intraperitoneal fluid is identified. There is no obvious lymphadenopathy. Status post gastric surgery. IMPRESSION: Splenomegaly. Mild prominence of the main portal vein is noted suggestive of possible increased portal pressure. A small amount of pericholecystic fluid is seen. This finding could be reactive in nature versus secondary to acute inflammation. There is however no definite gallbladder overdistention or wall edema. No obvious gallbladder calculus is seen. There is no definite evidence of cholelithiasis on recently performed sonography of 07/02/2016. No biliary tract dilatation is visualized. There is no MRCP evidence of choledocholithiasis (sensitivity 90%). Status post gastric surgery. Small left-sided and trace right-sided pleural effusion. Bilateral flank subcutaneous edema. HOSPITAL COURSE: (1) Abnormal liver enzymes 2/2 picture most consistent with resolving viral gastroenteritis and coexistant DAVID. Advised to avoid dairy for at least 7 days. SUSPECT VIRAL DISEASE, EBV PENDING sepsis due to Acute gastroenteritis- afebrile >24H. likely viral etiology as now improving. transaminitis has remained stable over this course. MRCP done. will complete 7 day course of levaquin. per dr Vallejo" Pancytopenia; WBC increased to 2.5 diff nl; mplates up >100K ; getting iv iron for iron def anemia; counts may be increasing s/p marrow suppression , but other etiologies possible ; will not do BM exam today and f/u as outpatient thursday [phone] 12:00 noon or in 1-2 weeks;" pt seems stable for d/c Date of Admission:07/02/16 Date of Discharge: 07/06/16 Minutes to complete discharge: 33 Discharge Summary Reason For Visit: ABD PAIN/NEUTROPENIA/THROMBOCYTOPENIA Current Active Problems Abdominal pain (Acute) Abnormal liver enzymes (Acute) Lower abdominal pain (Acute) Neutropenia (Acute) Pancytopenia (Acute) Rash (Acute) Thrombocytopenia (Acute) Condition: Stable - Instructions Diet, Activity, Other Instructions: You are being discharged home. Please call and follow up with your primary care provider in one week to assess your health. You will need to have your labs repeated. to monitor your liver function. Please call and follow up with Hematology DR. Vallejo in one week. Please call and follow up with GI DR. Gold in two week. you will be provided a facemask to help prevent you from getting infection when you are in crowded places and on the [place] for [place]. Please remember to wash your hands to avoid contact with your mouth. continue antibiotic until completed, even if your symptoms resolve. Please reports to the ER or the nearest ER if you have any persistent and worsening symptoms, chest pain, palpitation, fevers, chills, night sweats, Nausea, Vomiting, severe headache dizziness or loss of consciousness. Referrals: Sammy Vallejo MD [Staff Physician] - 1 Week Silvino Thomas MD [Staff Physician] - 2 Weeks Negrito Sheehan MD [Staff Physician] - 1 Week STAFF,NOT ON [Primary Care Provider] - Disposition: HOME - Home Medications Comprehensive Discharge Medication List: Ambulatory Orders NK [No Known Home Medication] 07/02/16 This patient is new to me today: Yes Date on this admission: 11/27/16 Emergency Visit: No Critical Care patient: No - Discharge Referral Referred to [facility] Med P.C.: No
[2016-07-06 08:53] LABS: ALBUMIN 2.7 g/dl (3.4-5.0); ANION GAP 8 (8-16); BILIRUBIN,TOTAL 0.3 mg/dL (0.2-1.0); CALCIUM 7.7 mg/dL (8.5-10.1); CO2 24 mmol/L (21-32); CREATININE 0.5 mg/dL (0.55-1.02); GLUCOSE,RANDOM 115 mg/dL (74-106); MAGNESIUM 2.1 mg/dL (1.8-2.4); PHOSPHOROUS 2.5 mg/dL (2.5-4.9); SGOT/AST 198 U/L (15-37); SGPT/ALT 176 U/L (12-78); TOT PROT 6.1 g/dl (6.4-8.2)
[2016-07-06 08:54] LABS: ALK PHOS 195 U/L (45-117)
[2016-07-06 09:03] VITALS: BP 95/57
[2016-07-06] MEDS ORDERED: IRON SUCROSE INJECTION 200 MG in SODIUM CHLORIDE 100 ML IVPB SCH (10:00)
[2016-07-06] MEDS ORDERED: PT OWN MED DRAWER 7, Y5N ONE (10:15)
[2016-07-06] MEDS: CYANOCOBALAMIN (VITAMIN B-12) 100 MCG TABLET PO SCH (10:17)
[2016-07-06] MEDS: NAPH,MB-DB/K PH,MBDB POWDER PACKET PO SCH (10:17)
[2016-07-06] MEDS: LEVOFLOXACIN 500 MG IVPB 100 ML IVPB SCH (10:17)
[2016-07-06] MEDS ORDERED: POTASSIUM CHLORIDE 40 MEQ/30 ML UNIT DOSE CUP PO ONE (11:25)
--- NOTE | 2016-07-06 13:20 | PN ---
Teaching Attending Note Name of Resident: Kirby Khan ATTENDING PHYSICIAN STATEMENT I saw and evaluated the patient. I reviewed the resident's note and discussed the case with the resident. I agree with the resident's findings and plan as documented. SUBJECTIVE:currently asymptomatic. states abdominal pain and diarrhea has resolved. tolerating regular diet. denies CP, SOB,fever, chills, N/V/C/D OBJECTIVE: Last Vital Signs Temp Pulse Resp BP Pulse Ox 97.7 F 93 H 18 95/57 98 07/06/16 08:00 07/06/16 08:00 07/06/16 08:00 07/06/16 08:00 07/06/16 09:00 General NAD CV S1 S2 RRR no murmur/rub/gallop Abdomen soft NT/ND no organomegaly appreciated Skin rash resolved ASSESSMENT AND PLAN: 31 yo F with PMH multiple abdominal surgeries presented to the ER and was admitted for further evaluation of their emergent condition 1. sepsis due to Acute gastroenteritis- afebrile >24H. likely viral etiology as now improving. transaminitis has remained stable over this course. MRCP done. will complete 7 day course of levaquin. 2. petechial rash- likely drug rash. resolved 3. Hypokalemia- resolved 4. Hypophosphatemia-resolved 5. Pancytopenia- stable and improving. venofer day 2. was to go for BM tap yesterday however pt was in MRI when hematology came to perform, will do as outpatient. will need to f/u with hematology for further work up. 6. DVT ppx-SCD. hold in setting of thrombocytopenia and anemia 7. d/c home with f/u with GI and hematology. will likely require further testing to determine cause of pancytopenia and transaminitis. may require further treatment with Venofer. care d/w pt verbalized understanding and agreed.
[2016-07-06 13:24] VITALS: PULSE 62; TEMP 98.1
[2016-07-09 00:06] LABS: IMMUNOGLOBULIN A QN < 5 mg/dL (87-352)
[2016-07-10 13:43] LABS: LOG 10 EBV PCR UNABLE TO CALCULATE
== END 2016-07-06 14:00 | disposition home or self-care (01) | DRG 720 ==
LOC: JER 09:17 → UNDOADMIN 19:43 → JERBED 19:43 → J6S 22:55 → JERBED 22:55 → J6S 07-05 23:22
PROVIDERS: ADMIT Internal Medicine; ATTEND Internal Medicine
DX: A41.9 Sepsis, unspecified organism (principal); A08.4 Viral intestinal infection, unspecified; D69.6 Thrombocytopenia, unspecified; Z98.84 Bariatric surgery status; D64.9 Anemia, unspecified; R74.8 Abnormal levels of other serum enzymes; D61.818 Other pancytopenia; R21 Rash and other nonspecific skin eruption; E61.1 Iron deficiency; E87.6 Hypokalemia; R16.1 Splenomegaly, not elsewhere classified; E83.39 Other disorders of phosphorus metabolism; R19.7 Diarrhea, unspecified; M79.89 Other specified soft tissue disorders; D70.9 Neutropenia, unspecified
CPT/HCPCS: 36415; 71020-TC; 74177-TC; 74181-TC; 76700-TC; 76856-TC; 80053; 81003; 82607; 82728; 82746; 82784; 83010; 83516; 83540; 83550; 83605; 83615; 83690; 83735; 84100; 84703; 85025; 85027; 85044; 85384; 85610; 85730; 86308; 86704; 86706; 86708; 86803; 86850; 86900; 86901; 87040; 87045; 87046; 87086; 87177; 87207; 87209; 87324; 87328; 87329; 87340; 87389; 87449; 87798; 87799; 99284-25; C1887; J1756; Q9967

== ENCOUNTER 2021-10-18 13:04 | Emergency (ER) | payer OTHER ==
[2021-10-18 13:09] VITALS: TEMP 97.8; BMI 28.4
[2021-10-18] MEDS ORDERED: GABAPENTIN 100 MG CAPSULE PO ONE (14:10)
[2021-10-18] MEDS ORDERED: GABAPENTIN 100 MG CAPSULE ONE (14:50)
[2021-10-18 15:58] LABS: BASO % 0.6 % (0-2.0); EOS % 0.3 % (0-4.5); HEMATOCRIT 36.2 % (32.4-45.2); HEMOGLOBIN 12.2 GM/dL (10.7-15.3); LYMPH % 31.9 % (8-40); MCH 31.5 pg (25.7-33.7); MCHC 33.7 g/dl (32.0-36.0); MEAN CELL VOLUME 93.5 fl (80-96); MONO % 6.9 % (3.8-10.2); NEUT % 60.3 % (42.8-82.8); PLATELET COUNT 220 10^3/uL (134-434); RBC 3.87 M/mm3 (3.60-5.2); RDW 13.3 % (11.6-15.6)
[2021-10-18 16:01] LABS: EPI CELLS 12 /uL (0-25.1); HYALINE CASTS 0 /uL (0-3.1); URINE APPEARANCE CLEAR; URINE BACTERIA 813 /uL (0-1359); URINE BILIRUBIN NEGATIVE (NEGATIVE); URINE COLOR YELLOW; URINE GLUCOSE (UA) NEGATIVE (NEGATIVE); URINE KETONE NEGATIVE (NEGATIVE); URINE LEUK ESTERASE NEGATIVE (NEGATIVE); URINE NITRITE NEGATIVE (NEGATIVE); URINE PROTEIN NEGATIVE (NEGATIVE); URINE RBC 2 /uL (0-23.9); URINE WBC 10 /uL (0-25.8)
[2021-10-18 16:02] LABS: HCG,QUALITATIVE URINE Negative
[2021-10-18 16:18] LABS: CHLORIDE 110 mmol/L (98-107); SODIUM 142 mmol/L (136-145)
[2021-10-18 16:22] LABS: ALBUMIN 3.6 g/dl (3.4-5.0); ANION GAP 6 MMOL/L (8-16); BLOOD UREA NITROGEN 13.7 mg/dL (7-18); CALCIUM 8.5 mg/dL (8.5-10.1); CO2 27 mmol/L (21-32); GLUCOSE,RANDOM 79 mg/dL (74-106); MAGNESIUM 2.2 mg/dL (1.8-2.4)
[2021-10-18 16:25] LABS: CREATININE 0.6 mg/dL (0.55-1.3); SGPT/ALT 29 U/L (13-61)
[2021-10-18 16:26] LABS: BILIRUBIN,TOTAL 0.3 mg/dL (0.2-1); SGOT/AST 31 U/L (15-37); TOT PROT 6.8 g/dl (6.4-8.2)
[2021-10-18 16:28] LABS: ALK PHOS 80 U/L (45-117)
[2021-10-18 17:13] LABS: ERYTHROCYTE SEDIMENTATION RATE 7 mm/hr (0-20)
[2021-10-18 19:50] VITALS: BP 122/72; PULSE 68
== END 2021-10-18 19:49 | disposition home or self-care (01) ==
LOC: JER 13:04
DX: M54.2 Cervicalgia (principal); M79.601 Pain in right arm; M79.602 Pain in left arm; M54.89 Other dorsalgia
CPT/HCPCS: 36415; 80053; 81003; 82607; 83735; 84484; 84703; 85025; 85651; 86038; 86140; 87086; 87186; 93005; 93010; 99284-25